=== PATIENT | female | born 1950 | race Caucasian/White ===

== ENCOUNTER → 2018-05-21 08:36 | Outpatient (CLI) | payer MEDICARE, SELFPAY ==
[2018-05-21 10:39] LABS: Anion Gap 9 (5-15); BUN 11 mg/dL (7-18); BUN/Creat Ratio 17.9 RATIO (10-20); Calcium,Total 9.3 mg/dL (8.5-10.1); Chloride 98 mmol/L (98-107); Cholesterol 204 mg/dL (200); Creatinine, Serum 0.62 mg/dL (0.55-1.02); EST Glomerular Filtration Rate 103 mL/min (>60); Est Glom Filt Rate - Afr Amer 124 mL/min (>60); Glucose 80 mg/dL (74-106); High Density Lipoprotein 103 mg/dL; Potassium 3.8 mmol/L (3.5-5.1); Sodium Level 135 mmol/L (136-145); Triglycerides 73 mg/dL; Very Low Density Lipoprotein 15 mg/dL (5-40)
[2018-05-21 10:46] LABS: Vitamin D,25 Hydroxy 22.6 ng/mL (29.95-100.01)
--- OUTSIDE RECORDS SUMMARY | 2018-07-16 13:56 | XMS RPT_ITS ---
:1950 Author Organization OHIP Care Team Providers Name Role Phone AIRAM DOWELL Referring Unavailable AIRAM DOWELL Attending Unavailable Maria R Brown Attending Unavailable Sid Flower Referring Unavailable Sid Flower Primary Care Unavailable Maria R Brown Attending Unavailable Sid Flower Referring Unavailable Gabriele Orona Attending Unavailable Flower, Sid Referring Unavailable Flower, Sid Primary Care Unavailable Waymarialuisa, Gabriele Attending Unavailable Flower, Sid Referring Unavailable Wayt, Gabriele Attending Unavailable Flower, Sid Referring Unavailable Waymarialuisa, Gabriele Attending Unavailable Flower, Sid Referring Unavailable Wayt, Gabriele Attending Unavailable Flower, Sid Referring Unavailable Flower, Sid Attending Unavailable Flower, Sid Referring Unavailable Flower, Sid Primary Care Unavailable PROBLEMS PROBLEMS DATE TYPE CONDITION / CODE ATTENDING STATUS SOURCE 04/24/2018 Unknown M17.11 - Gabriele Orona Active [place] Unilateral [facility] osteoarthritis, Repository right knee / M17.11(ICD-10) 10/30/2017 Active Encounter for NA Active [facility] screening [facility] mammogram for Repository malignant neoplasm of breast / Z12.31(ICD-10) PROCEDURES PROCEDURES No Procedure Records FoundRESULTS RESULTS BASIC METABOLIC Collected: 05/21/2018 Status: F Source: [place] PROFILE (BMP) 8:41 AM [facility] REPOSITORY Order Comment: Order Date: 10/14/17 Order Info: 0667-1 - BMP Order Info: 71142-6 - LIPID TYPE CODE TESTS RESULT OUT OF RANGE REFERENCE UNITS LAB L501.0100 74-106 mg/dL Normal GLU 80 Result Comment: Please note revised GLUCOSE reference range effective 2017. LAB L501.1000 7-18 mg/dL Normal BUN 11 LAB L501.1100 0.55-1.02 mg/dL Normal CREAT,SERUM 0.62 Result Comment: The validity of the calculated GFR AND GFRAA in patients over 70 years has not been determined. Clinical correlation is essential. LAB L501.1110 >60 mL/min Normal EST GFR 103 Result Comment: Non- GFR Calc LAB L501.1115 >60 mL/min Normal EST GFR - AA 124 Result Comment: GFR Calc LAB L501.1300 10-20 RATIO Normal BUN/CRE 17.9 LAB L501.2200 8.5-10.1 mg/dL CA Normal 9.3 LAB L501.5300 136-145 mmol/L Low NA 135 LAB L501.5600 3.5-5.1 mmol/L K Normal 3.8 LAB L501.5900 98-107 mmol/L CL Normal 98 LAB L501.6100 21.0-32.0 mmol/L Normal CO2 28.0 LAB L501.6200 5-15 Normal GAP 9 Performed By: #### L500.2500, L500.4100, L506.1000 #### [facility] [address] [place], [address] LIPID PROFILE Collected: 05/21/2018 Status: F Source: [place]Y 8:41 AM [facility] REPOSITORY Order Comment: Order Date: 10/14/17 Order Info: 0667-1 - BMP Order Info: 79345-2 - LIPID TYPE CODE TESTS RESULT OUT OF RANGE REFERENCE UNITS LAB L501.4900 200 mg/dL High CHOL 204 Result Comment: <200 mg/dL Desirable 200-240 mg/dL Borderline >240 mg/dL High Risk LAB L501.5000 mg/dL Normal TRIG 73 Result Comment: The drugs N-Acetylcysteine and Metamizole may falsely depress this assay. Serum Triglycerides Reference Interval Normal <150 mg/dL Borderline high 150 - 199 mg/dL High 200 - 499 mg/dL Very High > or = 500 mg/dL LAB L501.6400 mg/dL Normal HDL 103 Result Comment: The drugs N-Acetylcysteine and Metamizole may falsely depress this assay. Reference Range HDL <40 mg/dL Low HDL Cholesterol HDL >or= 60 mg/dL High HDL Cholesterol LAB L501.6500 0-130 mg/dL Normal LDL 86 LAB L501.6600 5-40 mg/dL Normal VLDL 15 Performed By: #### L500.2500, L500.4100, L506.1000 #### [facility] [address] [place], [place], [address] VITAMIN D,25 HYDROXY Collected: 05/21/2018 Status: F Source: [place] 8:41 AM [facility] REPOSITORY Order Comment: Order Date: 10/14/17 Order Info: [id number] - VITD25 TYPE CODE TESTS RESULT OUT OF REFERENCE UNITS RANGE LAB L506.1000 29.95-100.01 ng/mL Low Vitamin D 22.6 25-OH Result Comment: Vitamin D 25(OH) Status Range Deficiency <20 ng/mL (50nmol/L) Insuffciency 20 - 30 ng/mL (50 - 75 nmol/L) Sufficiency 30 - 100 ng/mL (75 - 250 nmol/L) Toxicity >100 ng/mL (>250 nmol/L) Performed By: #### L500.2500, L500.4100, L506.1000 #### [facility] [address] [place], [address] ORTHOPEDIC VISIT Observed: 04/24/2018 Status: F Source: [place] REPORT 11:30 AM [facility] REPOSITORY [facility] [address] [place] [address] OFFICE VISIT Date of Service: 04/24/18 MR#: [id number] Acct: [id number] Name: DANIELLE GAO Rep #: [id number] : 1950 Provider: GENTRY Orona Age/Sex: 68/F Location: [facility] Status: Signed Intake Intake Visit Reasons: RIGHT KNEE Is patient in pain?: No Allergies No Known Allergies Allergy (Verified 04/24/18 08:17) Medications aspirin 81 mg tablet,delayed release 81 mg PO QDAY 12/05/17 [History Confirmed 12/05/17] atorvastatin 10 mg tablet 10 mg PO QDAY 12/05/17 [History Confirmed 12/05/17] calcium carbonate-vitamin D3 600 mg (1,500 mg)-500 unit capsule cap PO 12/05/17 [History Confirmed 12/05/17] hydrochlorothiazide 25 mg tablet 25 mg PO QDAY 12/05/17 [History Confirmed 12/05/17] multivitamin tablet 1 tab PO QDAY 12/05/17 [History Confirmed 12/05/17] PFSH Medical History H/O: hysterectomy (Acute) Surgical History h/o bunionectomy (Acute) HPI RIGHT KNEE: Details: DANIELLE GAO is a 68 year old F here today for her 3rd orthovisc injection into her right knee. She states that the injections have been helpful. She feels less pain and grinding. Denies numbness, tingling or other associated symptoms. She had no adverse reaction to her injection. ROS Const Reports system reviewed and no additional complaints, except as docu Eyes Reports system reviewed and no additional complaints, except as docu ENT Reports system reviewed and no additional complaints, except as docu Card Reports system reviewed and no additional complaints, except as docu Resp Reports system reviewed and no additional complaints, except as docu GI Reports system reviewed and no additional complaints, except as docu Reports system reviewed and no additional complaints, except as docu Skin/Breast Reports system reviewed and no additional complaints, except as docu Neuro Yes system reviewed and no additional complaints, except as docu Psych Reports system reviewed and no additional complaints, except as docu Endo Reports system reviewed and no additional complaints, except as docu Ortho Exam Right Knee Contralateral Normal: Yes Swelling: No Homans Sign: No Knee ROM: Yes ROM-Extension -20 to 0, Yes ROM-Flexion 0-140 Examination: Yes Med jt line tenderness, No Pain with flexion, No Pain with extention Quad Atrophy: No Office Meds ORTHOVISC Performing Provider: GENTRY Swanson Administered by: GENTRY Swanson on 04/24/18 08:19 Dose Route Admin Location Lot Number Expiration Date [employer] 30 mg Intra-Articular right knee Assessment AND Plan Plan Patient is here to receive her third and final Orthovisc injection into the right knee. This point patient states that she did not feel much events after the first shot but after the second injection has noticed improvement. She has no new complaints or concerns otherwise. Risks and benefits were again discussed and patient is aware of. Consent was signed and injection was given without complications or problems. Patient to follow-up with any concerns or complaints in the meantime. Orders Orders: Medications Discontinued: ORTHOVISC (sodium hyaluronate (viscosup)) 30 mg (2 mL) Intra- Articular ONCE 1 mL 0RFM17.11 Discontinued Reason: Office Medication NS has been Documented as given Coding Level of Care Code Off vis,est,level 2 04/24/18 1130 <Electronically signed by Gabriele RINALDI> Date Gabriele RINALDI Cosigner Signature: Date (if applicable) CC: ORTHOPEDIC VISIT Observed: 04/17/2018 Status: F Source: [place] REPORT 10:11 AM [facility] REPOSITORY [facility] [address] [place] [address] OFFICE VISIT Date of Service: 04/17/18 MR#: [id number] Acct: [id number] Name: DANIELLE GAO Rep #: [id number] : 1950 Provider: GENTRY Orona Age/Sex: 68/F Location: [facility] Status: Signed Intake Intake Visit Reasons: RIGHT KNEE Is patient in pain?: Yes Allergies No Known Allergies Allergy (Verified 04/17/18 08:25) Medications aspirin 81 mg tablet,delayed release 81 mg PO QDAY 12/05/17 [History Confirmed 12/05/17] atorvastatin 10 mg tablet 10 mg PO QDAY 12/05/17 [History Confirmed 12/05/17] calcium carbonate-vitamin D3 600 mg (1,500 mg)-500 unit capsule cap PO 12/05/17 [History Confirmed 12/05/17] hydrochlorothiazide 25 mg tablet 25 mg PO QDAY 12/05/17 [History Confirmed 12/05/17] multivitamin tablet 1 tab PO QDAY 12/05/17 [History Confirmed 12/05/17] PFSH Medical History H/O: hysterectomy (Acute) Surgical History h/o bunionectomy (Acute) HPI RIGHT KNEE: Details: DANIELLE GAO is a 68 year old F here today for 2nd orthovisc injection into her right knee. She notes that she doesnt notice a difference with her pain yet. Patient continues to have clicking and grinding. She denies any adverse reaction from her last injection. ROS Const Reports system reviewed and no additional complaints, except as docu Eyes Reports system reviewed and no additional complaints, except as docu ENT Reports system reviewed and no additional complaints, except as docu Card Reports system reviewed and no additional complaints, except as docu Resp Reports system reviewed and no additional complaints, except as docu GI Reports system reviewed and no additional complaints, except as docu Reports system reviewed and no additional complaints, except as docu Musc Reports joint pain Skin/Breast Reports system reviewed and no additional complaints, except as docu Neuro Yes system reviewed and no additional complaints, except as docu Psych Reports system reviewed and no additional complaints, except as docu Endo Reports system reviewed and no additional complaints, except as docu Ortho Exam Right Knee Contralateral Normal: Yes Swelling: No Homans Sign: No Knee ROM: Yes ROM-Extension -20 to 0, Yes ROM-Flexion 0-140 Examination: Yes Med jt line tenderness Patella Grind: No Assessment AND Plan Problems 1. Arthritis of right knee M17.11 Plan Patient was here to receive her second gel injection into the right knee. We discussed risks and benefits previously at the same time did discuss this again today. Patient is aware of these risks and consent was signed again. Injection was proceeded without any complications. She is to make an appointment in 1 week for her third injection. She can notify the office of any changes in sooner which include erythema, pain, or swelling. Orders Orders: Medications New: ORTHOVISC (sodium hyaluronate (viscosup)) 30 mg (2 mL) Intra- Articular ONCE 1 mL 0RFM17.11 NS Plan Detail Follow Up 1 Week Coding Level of Care Code Off vis,est,level 2 Diagnoses Arthritis of right knee M17.11 04/17/18 1011 <Electronically signed by Gabriele RINALDI> Date Gabriele RINALDI Cosigner Signature: Date (if applicable) CC: ORTHOPEDIC VISIT Observed: 04/10/2018 Status: F Source: [place] REPORT 9:24 AM [facility] [address] [place] [address] OFFICE VISIT Date of Service: 04/10/18 MR#: [id number] Acct: [id number] Name: DANIELLE GAO Rep #: [id number] : 1950 Provider: GENTRY Orona Age/Sex: 68/F [place] [facility]: Signed Intake Intake Visit Reasons: RIGHT KNEE Is patient in pain?: Yes Pain scale (1-10): 4 Allergies No Known Allergies Allergy (Unverified 12/05/17 11:07) Medications aspirin 81 mg tablet,delayed release 81 mg PO QDAY 12/05/17 [History Confirmed 12/05/17] atorvastatin 10 mg tablet 10 mg PO QDAY 12/05/17 [History Confirmed 12/05/17] calcium carbonate-vitamin D3 600 mg (1,500 mg)-500 unit capsule cap PO 12/05/17 [History Confirmed 12/05/17] hydrochlorothiazide 25 mg tablet 25 mg PO QDAY 12/05/17 [History Confirmed 12/05/17] multivitamin tablet 1 tab PO QDAY 12/05/17 [History Confirmed 12/05/17] PFSH Medical History H/O: hysterectomy (Acute) Surgical History h/o bunionectomy (Acute) HPI RIGHT KNEE: Details: DANIELLE GAO is a 68 year old F here today for right knee pain and 1st orthovisc injection of this series. She states that the steroid injection last month was incredibly helpful and allowed her to do all the walking on her travels oversees with only mild pain. Her pain today is lateral knee that increases with flexion. Denies numbness, tingling or other associated symptoms. She has mild swelling today. Denies any calf pain. ROS Musc Reports joint pain, Reports joint swelling, Reports stiffness, Reports as per HPI Ortho Exam Right Knee Contralateral Normal: Yes Swelling: No Homans Sign: No Knee ROM: Yes ROM-Extension -20 to 0, Yes ROM-Flexion 0-140 Examination: Yes Lat jt line tenderness, Yes Pain with flexion, No Pain with extention, No Crepitus, No Med jt line tenderness Quad Atrophy: No Office Meds ORTHOVISC Performing Provider: GENTRY Swanson Administered by: GENTRY Swanson on 04/10/18 08:35 Dose Route Admin Location Lot Number Expiration Date [facility] Publications Designer 30 mg Intra-Articular right knee Assessment AND Plan Problems 1. Arthritis of right knee M17.11 Plan Patient is here for her first Visco injection. She has had multiple steroid injections to the right knee which were helpful. He continued to have lateral joint line pains and pains with flexion. She has had previous x-rays showing arthritis within the knee. We again discussed risks and benefits of the injection which she is aware of already. She would like to proceed at this time with injection of the right knee. Consent was signed injection was given without any complications. Patient already has her next appointment scheduled for next Saturday to have a second injection Orders Orders: Medications Discontinued: ORTHOVISC (sodium hyaluronate (viscosup)) 30 mg (2 mL) Intra- Articular ONCE 1 mL 0RFM17.11 Discontinued Reason: Office Medication NS has been Documented as given Plan Detail Follow Up 1 Week Coding Level of Care Code Off vis,est,level 2 Diagnoses Arthritis of right knee M17.11 04/10/18 0924 <Electronically signed by Gabriele RINALDI> Date Gabriele RINALDI Cosigner Signature: Date (if applicable) CC: ORTHOPEDIC VISIT Observed: 03/17/2018 Status: F Source: [place] REPORT 8:21 AM [facility] [address] [place] [address] OFFICE VISIT Date of Service: 03/17/18 MR#: [id number] Acct: [id number] Name: DANIELLE GAO Rep #: [id number] : 1950 Provider: GENTRY Orona Age/Sex: 68/F [place] [facility] [place]: Signed Intake Intake Visit Reasons: RIGHT KNEE Is patient in pain?: Yes Pain scale (1-10): 7 Allergies No Known Allergies Allergy (Unverified 12/05/17 11:07) Medications aspirin 81 mg tablet,delayed release 81 mg PO QDAY 12/05/17 [History Confirmed 12/05/17] atorvastatin 10 mg tablet 10 mg PO QDAY 12/05/17 [History Confirmed 12/05/17] calcium carbonate-vitamin D3 600 mg (1,500 mg)-500 unit capsule cap PO 12/05/17 [History Confirmed 12/05/17] hydrochlorothiazide 25 mg tablet 25 mg PO QDAY 12/05/17 [History Confirmed 12/05/17] multivitamin tablet 1 tab PO QDAY 12/05/17 [History Confirmed 12/05/17] [facility] Surgical History H/O: hysterectomy (Acute) h/o bunionectomy (Acute) HPI RIGHT KNEE: Details: DANIELLE GAO is a 68 year old F here today for right knee pain, she has travel coming up and will be unable to get her series of 3 visco injections in a row and would like to discuss postponing those until she returns. Her knee pain is constant, worse at night and makes her aware of her movements at all times. Denies numbness, tingling or other associated symptoms. She is using tylenol for pain. ROS Musc Reports joint pain, Reports abnormal walking, Reports as per HPI Neuro Yes abnormal walking Ortho Exam Right Knee Contralateral Normal: Yes Swelling: No Homans Sign: No Knee ROM: Yes ROM-Extension -20 to 0, Yes ROM-Flexion 0-140 Examination: Yes Med jt line tenderness, Yes Lat jt line tenderness, No Pain with flexion, No Pain with extention Assessment AND Plan Problems 1. Arthritis of right knee M17.11 Plan Patient will schedule to have her Gel injections as her dates got mixed up due to having to accompany her for work for 2 weeks. We discussed the injection and what to expect although she has had these before (last one November 29). She si to notify of any concerns or complaints. Coding Level of Care Code Off vis,est,level 3 Diagnoses Arthritis of right knee M17.11 03/17/18 0821 <Electronically signed by Gabriele RINALDI> Date Gabriele RINALDI Cosigner Signature: Date (if applicable) CC: ORTHOPEDIC VISIT Observed: 12/10/2017 Status: F Source: [place] REPORT 10:34 AM [facility] REPOSITORY [facility] [address] [place] [address] OFFICE VISIT Date of Service: 12/05/17 MR#: [id number] Acct: [id number] Name: DANIELLE GAO Rep #: [id number] : 1950 Provider: Maria R Brown DO Age/Sex: 67/F Location: [facility] Status: Signed Intake Intake Visit Reasons: RIGHT KNEE Is patient in pain?: Yes Allergies No Known Allergies Allergy (Unverified 12/05/17 11:07) Medications aspirin 81 mg tablet,delayed release 81 mg PO QDAY 12/05/17 [History Confirmed 12/05/17] atorvastatin 10 mg tablet 10 mg PO QDAY 12/05/17 [History Confirmed 12/05/17] calcium carbonate-vitamin D3 600 mg (1,500 mg)-500 unit capsule cap PO 12/05/17 [History Confirmed 12/05/17] hydrochlorothiazide 25 mg tablet 25 mg PO QDAY 12/05/17 [History Confirmed 12/05/17] multivitamin tablet 1 tab PO QDAY 12/05/17 [History Confirmed 12/05/17] PFSH Surgical History H/O: hysterectomy (Acute) h/o bunionectomy (Acute) HPI RIGHT KNEE: Details: DANIELLE GAO is a 67 year old F here today for right knee pain. Patient notes that her knee pain has continued to progress. Her pain is over her lateral knee. She has popping, clicking and swelling. Her pain increases with ambulating down stairs. She denies any recent steroid injections. Her last injections of Orthovisc were helpful until recently. ROS Const Reports system reviewed and no additional complaints, except as docu Eyes Reports system reviewed and no additional complaints, except as docu ENT Reports system reviewed and no additional complaints, except as docu Card Reports system reviewed and no additional complaints, except as docu Resp Reports system reviewed and no additional complaints, except as docu GI Reports system reviewed and no additional complaints, except as docu Reports system reviewed and no additional complaints, except as docu Musc Reports as per HPI, Reports joint pain, Reports joint swelling, Reports stiffness Skin/Breast Reports system reviewed and no additional complaints, except as docu Neuro Yes system reviewed and no additional complaints, except as docu Psych Reports system reviewed and no additional complaints, except as docu Endo Reports system reviewed and no additional complaints, except as docu Ortho Exam Right Knee Skin/Wound: Yes CDI Contralateral Normal: Yes Swelling: No Homans Sign: No 1+: Effusion Knee ROM: Yes ROM-Extension -20 to 0, Yes ROM-Flexion 0-140 Examination: Yes Med jt line tenderness, Yes Pain with flexion, Yes Crepitus Quad Atrophy: No Office Procedures Ortho Injections Injections Yes Knee Right Details: Obtained consent for injection. Under sterile conditions, aspirated 6cc and injected the patients right knee with a 10cc cocktail of 8cc bupivacaine and 2cc kenalog. The patient tolerated the injection well without any noted complication. Patient should call our office if redness develops, pain worsens or if they have any concerns. Office Meds Kenalog Performing Provider: Maria R Brown DO Administered by: Maria R Brown DO on 12/05/17 09:54 Dose Route Admin Location Lot Number Expiration DateNDC Publications Designer 2 mg Intra-Articularright knee [id number] 10/22/18 [id number] [facility] Assessment AND Plan 1. Primary osteoarthritis of right knee M17.11 Plan discussed treatment options today. as having increased swelling and synovitis today, patient elected to proceed with injection today to provide immediate relief. discussed treatment options of bracing, exercising, icing after injection as well. patient in agreement of plan and elected to proceed with injection today and we will put in for orthovisc injection if patient elects to proceed. Conservative treatment continues to be helpful, return in 4 months if needed. Follow up in 3-4 months or sooner if pain, swelling, numbness or associated symptoms, or concerns develop. All questions answered. Patient in agreement of plan. Orders Orders: Medications Discontinued: Kenalog (triamcinolone acetonide) Disc2 mg (0.2 mL) Intra- Articular ONCE NS Brayden Jack ontinued Reason: Office Medication has b een Documented as given Coding Level of Care Code Off vis,est,level 3 Diagnoses Primary osteoarthritis of right knee M17.11 Osteoarthritis type: primary Additional Codes manager administration.knee ([id number]) 12/10/17 1034 <Electronically signed by Maria R Brown DO> Date Maria R Brown DO Cosigner Signature: Date (if applicable) CC: CNCO Observed: 10/30/2017 Status: COMPLETED Source: [place] 3:17 PM [facility] REPOSITORY HNO ID: [id number] Author: Coordinator, Mammography Service: (none) Author Type: Physician Type: Letter Filed: 10/31/2017 11:32 PM Note Text: October 30, 2017 PID: [id number] Danielle Gao [address] [place] [address] Dear Ms. Gao, We are pleased to inform you that the results of your recent breast imaging exam on 10/30/2017 are normal. Early detection of cancer is very important. We also understand recommendations regarding breast cancer screening are controversial. Please discuss with your primary care provider which strategy is best for you and whether a mammogram is right for you. Your imaging studies and report will be kept on file at [facility] as part of your permanent medical record and are available for your continuing care. Thank you for allowing us to help in meeting your health care needs. Sincerely, Dr. Hughes Interpreting Radiologist [facility] (Normal over 40) PROGRESS Observed: 10/30/2017 Status: COMPLETED Source: [place] 9:59 AM [facility] REPOSITORY HNO ID: [id number] Author: Airam Dowell Service: (none) Author Type: Physician Type: Progress Notes Filed: 10/30/2017 10:46 AM Note Text: Vice President Pharmacy offered: Patient declines. Danielle Gao is a 67 year old who presents for her annual gynecologic exam without complaints. Leaving for [employer] next week. Retired from [employer]. Has 6 grandchildren- one starting med school this fall at [employer]. Postmenopausal: yes. Hysterectomy at 38. One ovary removed at that time. HRT use: No. History of abnormal pap: No Last mammogram: 2016 normal. Today's results pending. History of abnormal mammogram: Yes - lumpectomy in 1988; follow up more recently normal Sexually active: Yes History of STDS: None Patient concerns for STD exposure: No. Last sexual contact: 1 month Time with current partner: 49 years Number of lifetime partners: 1 Pain with intercourse: Yes Postcoital bleeding: No Hot flashes: No Night sweats: No Vaginal dryness: Yes Mood swings: No Insomnia: No Exercise: 7 times a week for 4-5 miles. Type: walking Diet: well balanced Obstetric History T3 L3 SAB0 TAB0 Ectopic0 Multiple0 Live Births0 PAST MEDICAL HISTORY Diagnosis Date - Edema - Hemorrhage of gastrointestinal tract, unspecified - Hemorrhage of rectum and anus - Internal hemorrhoids without mention of complication - Other and unspecified hyperlipidemia - Seasonal allergies PAST SURGICAL HISTORY Procedure Laterality Date - COLONOSCOP W/ OR W/O [facility] SPEC 05/03/06 - COLONOSCOP W/ OR W/O [facility] SPEC N/A 09/27/2016 - COLONOSCOP W/ OR W/O [facility] SPEC 04/08/2017 repeat 5 years - HAMMERTOE REVISION, ONE TOE 05/07/2012 2 toes, 2nd and third - LUMPECTOMY/RADIOTHERAPY DIAG MAMM/A10 1988 left breast - PAST SURGICAL HISTORY OF catarct surgery both eyes - REMOVE TONSILS/ADENOIDS,<12 Y/O - TOTAL ABDOM HYSTERECTOMY September 1987 FAMILY HISTORY Problem Relation Age of Onset - Cancer Mother Pancreatic - Heart Father Heart attack/hypertension SOCIAL HISTORY Social History Substance Use Topics - Smoking status: Never Smoker - Smokeless tobacco: Never Used - Alcohol use 1.5 oz/week 1 Glasses of Wine (5oz) per week Comment: occasionally REVIEW OF SYSTEMS Abdomen: No abdominal pain, nausea, vomiting, diarrhea, or constipation. No bloating, early satiety, indigestion, or increased flatulence. Bladder: No dysuria, gross hematuria, urinary frequency, urinary urgency, or incontinence Breast: No breast lumps, nipple d/c, overlying skin changes, redness or skin retraction Allergies and current medication updated:Yes EXAM: There were no vitals taken for this visit. GENERAL: pleasant, female in no apparent distress HEENT: Normocephalic, atraumatic, mucus membranes moist and no lesions NECK: Supple, full range of motion, no adenopathy and thyroid normal DERMATOLOGY: Normal, without lesions, non-icteric and non-hirsute BREAST: soft, non-tender, symmetric, no dominant mass, normal nipple-areolar complex, no lymphadenopathy and no nipple discharge ABDOMEN: soft, non-tender and no masses PELVIC: external genitalia normal, normal Bartholin's glands, urethra, Rancho Cordova's glands, no vulvar lesions, good vaginal support, physiologic discharge present, normal appearing perineal body and perianal region, cervix surgically absent BIMANUAL: no adnexal masses, non-tender and uterus surgically absent RECTOVAGINAL: deferred. NEURO: alert and oriented x3,exam grossly non-focal EXTREMITIES: normal ASSESSMENT/PLAN: 1) Health maintenance: Pap/HPV screening no longer needed Mammogram ordered Mammogram up to date Nutrition, exercise and routine health maintenance exams reviewed. Calcium/Vitamin D supplementation information provided. Colon cancer screening: up to date with screening BMD: ordered 2) Follow up one year or sooner as needed Beni QuispentoshAiram KRISTA SCREENING Observed: 10/30/2017 Status: F Source: [place] 9:53 AM [facility] REPOSITORY * * *Final Report* * * DATE OF EXAM: Oct 30 2017 9:53AM [facility] - [facility] SCREENING / PROCEDURE REASON: Encounter for screening mammogram for malignant neoplasm of breast * * * * Physician Interpretation * * * * RESULT: #[id number] - KRISTA SCREENING BILATERAL DIGITAL SCREENING MAMMOGRAM WITH CAD: 10/30/2017 HISTORY: Encounter For Screening Mammogram For Malignant Neoplasm Of Breast /patient reports no breast symptoms /priors available for comparison. RESULT: TECHNIQUE: The study was acquired using full field digital technology and interpreted from soft copy. Current study was also evaluated with a Computer Aided Detection (CAD). Comparison is made to exams dated: 09/10/2016 mammogram, 09/05/2015 mammogram - [facility], 07/06/[address] - [facility], and 07/05/2014 mammogram - [facility]. There are scattered fibroglandular elements in both breasts. There are benign calcifications in both breasts. No significant masses, calcifications, or other findings are seen in either breast. There has been no significant interval change. IMPRESSION: BENIGN FINDING There is no mammographic evidence of malignancy.A 1 year screening mammogram is recommended. Yolanda Hughes M.D., mc/rupa:10/30/2017 15:17:32 Gallery Director: Evy LARSON)(Rebekah), [facility] letter sent: Normal over 40 Mammogram BI-RADS: 2 Benign finding Gas Systems Worker: Rupa Transcribe Date/Time: Oct 30 2017 9:42A Dictated by: YOLANDA SHELTON MD This examination was interpreted and the report reviewed and electronically signed by: YOLANDA SHELTON MD on Oct 30 2017 3:17PM EST [id number] Observed: 10/30/2017 Status: COMPLETED Source: [place] 9:50 AM [facility] [place] REPOSITORY Office Visit (WOOB) DANIELLE GAO ([id number]) 1950 F Date Time Provider Department 10/30/17 9:50 AM AIRAM DOWELL WOOB During your visit today, we recorded the following information about you: Blood pressure Weight Height 138/74 72.1 kg 1.64 m Airam Dowell 10/30/2017 10:46 AM Signed Vice President Pharmacy offered: Patient declines. Danielle Gao is a 67 year old who presents for her annual gynecologic exam without complaints. Leaving for [employer] next week. Retired from [employer]. Has 6 grandchildren- one starting [employer] school this fall at [employer]. Postmenopausal: yes. Hysterectomy at 38. One ovary removed at that time. HRT use: No. History of abnormal pap: No Last mammogram: 2016 normal. Today's results pending. History of abnormal mammogram: Yes - lumpectomy in 1988; follow up more recently normal Sexually active: Yes History of STDS: None Patient concerns for STD exposure: No. Last sexual contact: 1 month Time with current partner: 49 years Number of lifetime partners: 1 Pain with intercourse: Yes Postcoital bleeding: No Hot flashes: No Night sweats: No Vaginal dryness: Yes Mood swings: No Insomnia: No Exercise: 7 times a week for 4-5 miles. Type: walking Diet: well balanced Obstetric History T3 L3 SAB0 TAB0 Ectopic0 Multiple0 Live Births0 PAST MEDICAL HISTORY Diagnosis Date - Edema - Hemorrhage of gastrointestinal tract, unspecified - Hemorrhage of rectum and anus - Internal hemorrhoids without mention of complication - Other and unspecified hyperlipidemia - Seasonal allergies PAST SURGICAL HISTORY Procedure Laterality Date - COLONOSCOP W/ OR W/O [facility] SPEC 05/03/06 - COLONOSCOP W/ OR W/O [facility] SPEC N/A 09/27/2016 - COLONOSCOP W/ OR W/O [facility] SPEC 04/08/2017 repeat 5 years - [place] REVISION, ONE TOE 05/07/2012 2 toes, 2nd and third - LUMPECTOMY/RADIOTHERAPY DIAG MAMM/A10 1988 left breast - PAST SURGICAL HISTORY OF catarct surgery both eyes - REMOVE TONSILS/ADENOIDS,<12 Y/O - TOTAL ABDOM HYSTERECTOMY September 1987 FAMILY HISTORY Problem Relation Age of Onset - Cancer Mother Pancreatic - Heart Father Heart attack/hypertension SOCIAL HISTORY Social History Substance Use Topics - Smoking status: Never Smoker - Smokeless tobacco: Never Used - Alcohol use 1.5 oz/week 1 Glasses of Wine (5oz) per week Comment: occasionally REVIEW OF SYSTEMS Abdomen: No abdominal pain, nausea, vomiting, diarrhea, or constipation. No bloating, early satiety, indigestion, or increased flatulence. Bladder: No dysuria, gross hematuria, urinary frequency, urinary urgency, or incontinence Breast: No breast lumps, nipple d/c, overlying skin changes, redness or skin retraction Allergies and current medication updated:Yes EXAM: There were no vitals taken for this visit. GENERAL: pleasant, female in no apparent distress HEENT: Normocephalic, atraumatic, mucus membranes moist and no lesions NECK: Supple, full range of motion, no adenopathy and thyroid normal DERMATOLOGY: Normal, without lesions, non-icteric and non-hirsute BREAST: soft, non-tender, symmetric, no dominant mass, normal nipple-areolar complex, no lymphadenopathy and no nipple discharge ABDOMEN: soft, non-tender and no masses PELVIC: external genitalia normal, normal Bartholin's glands, urethra, [place] Cord[place]'s glands, no vulvar lesions, good vaginal support, physiologic discharge present, normal appearing perineal body and perianal region, cervix surgically absent BIMANUAL: no adnexal masses, non-tender and uterus surgically absent RECTOVAGINAL: deferred. NEURO: alert and oriented x3,exam grossly non-focal EXTREMITIES: normal ASSESSMENT/PLAN: 1) Health maintenance: Pap/HPV screening no longer needed Mammogram ordered Mammogram up to date Nutrition, exercise and routine health maintenance exams reviewed. Calcium/Vitamin D supplementation information provided. Colon cancer screening: up to date with screening BMD: ordered 2) Follow up one year or sooner as needed Airam Dowell Referring Provider: SELF [200] Allergies As of Date: 10/30/2017 Noted Allergy Reaction CODEINE 10/09/2005 5 - Intolerance Date Reviewed: 10/30/2017 Reviewed by: Cyndie Brownlee Ma - Fully Assessed Reason for Visit: Yearly Exam [187] Primary Visit Diagnosis:Encounter for gynecological examination (general) (routine) without abnormal findings [Z01.419] Other Visit Diagnoses:Visit for screening mammogram [Z12.31] Encounter for screening for osteoporosis [Z13.820] Order(s):KRISTA SCREENING [[id number]] Order #: [id number] FUTURE estradiol (ESTRACE) 0.01 % (0.1 mg/gram) vaginal creamUse one gram nightly x 2 weeks then 1/2 gram 1-3 times weekly for maintenanceDisp: 1 TubeRfl: 0 DXA-AXIAL SKELETON [[id number]] Order #: [id number] FUTURE Prescriptions as of 10/30/2017 Sig: ESTRADIOL 0.01% (0.1 MG/GRAM)* Use one gram nightly x 2 week* * LORATADINE 10 MG TABLET Take one (1) tablet daily as * * LIPITOR 10 MG TABLET Take one(1) tablet daily. * MULTIVITAMIN TABLET Take one(1) tablet daily. * CALCIUM + D 600 MG (1,500 MG)* Take one(1) tablet daily. * NATURAL E 400 400 UNIT CAPSULE Take one(1) tablet daily. * MEDICATION, NON-DATABASE potassium 550 mg 1 per day * NIACINAMIDE 100 MG TABLET Take one(1) tablet daily. * ASPIRIN 81 MG TABLET Take one (1) tablet daily . * HYDROCHLOROTHIAZIDE 25 MG TAB* Take one(1) tablet daily. Problem List As Of Date 10/30/2017 Noted Resolved OPEN WOUND SITE NOS-COMPL [T07.XXXA] INVALID FOR* RECTAL AND ANAL HEMORRHAGE [K62.5] SCAR AND FIBROSIS OF SKIN [L90.5] INVALID FOR* OTHER ATOPIC DERMATITIS [L20.89] INVALID FOR* CHR SOLAR SKIN DAMAGE NOS [L57.8] INVALID FOR* DYSCHROMIA OTHER [L81.9] INVALID FOR* BENIGN NICCI SKIN TRUNK [D23.5] INVALID FOR* SEBORRHEIC KERATOSIS NOS [L82.1] INVALID FOR* VIRAL WARTS NOS [B07.9] INVALID FOR* BENIGN NICCI SKIN LEG [D23.70] INVALID FOR* ACTINIC KERATOSIS [L57.0] INVALID FOR* H/O BCC'S///PERS HX SKIN MALIGNANCY NEC [Z85.82*INVALID FOR* SEBORRHEIC KERATOSIS INFLAMED [L82.0] INVALID FOR* NEVI////BENIGN NICCI SKIN FACE NEC [D23.30] INVALID FOR* SKIN HYPERTRO/ATROPH NOS [L91.9, L90.9] INVALID FOR* SUPERFIC INJURY NEC-INFECTION [T14.8XXA, L08.9] INVALID FOR* Prescriptions ordered this encounter Disp Refills Start End ESTRADIOL 0.01% (0.1 MG/GRAM) VAGINA* 1 Tu* 0 10/30/2017 Sig: Use one gram nightly x 2 weeks then 1/2 gram 1-3 times weekly for maintenance Medications Discontinued During This Encounter estradiol (ESTRING) 2 mg vaginal ring 1 Ea* 3 10/13/2015 10/30/2017 Route: VAGINAL Sig: Use 2 mg vaginally every 3 months. INSERT 1 RING DIRECTED Disc: Reason for discontinue is not on file. Disposition: Return in 1 year (on 10/30/2018) for Annual Exam. Follow-up and Disposition History Recorded Encounter Status:Closed by AIRAM LOPEZ MD on 10/30/17 PROGRESS Observed: 10/30/2017 Status: COMPLETED Source: [place] 9:41 AM [facility] REPOSITORY O ID: [id number] Author: Mary England Service: (none) Author Type: (none) Type: Progress Notes Filed: 10/30/2017 9:55 AM Note Text: Radiology Service Progress Note PATIENT NAME: Danielle Goa DATE OF SERVICE: October 30, 2017 TIME: 9:41 AM PATIENT IDENTITY VERIFICATION COMPLETED USING TWO (2) METHODS: Patient confirmed name verbally and Date of . PATIENT GENDER DATA: Female. status: : No status: NO. PATIENT RELEVANT IMPLANT DATA REVIEWED: Not Applicable RADIOLOGY DEPARTMENT: [facility] jorje scr mammogram PERIPHERAL IV DATA: Not applicable SIGNED BY: Mary Oliveira October 30, 2017 9:41 AM ALLERGIES ALLERGIES DATE TYPE / CODE NAME / CODE REACTION SEVERITY SOURCE 04/24/2018 Drug No Known Unknown [place] Allergy/416 Allergies/F001 [facility] 920041(SNOM 426036(RXNORM) Hospital ED CT) Repository 10/09/2005 DRUG CODEINE INTOLERANCE [facility] INGREDI/419 [facility] 741676(SNOM Repository ED CT) ENCOUNTERS ENCOUNTERS ADMIT/DISCHARGE ACCOUNT ADMITTING ENCOUNTER LOCATION SOURCE NUMBER CLASS 05/21/2018 [id number] Ambulatory [place] [facility] Repository 04/24/2018/04/24/20 [id number] Ambulatory BMSBuilding:B [place] [address] Repository 04/17/2018/04/17/20 [id number] Ambulatory BMSBuilding:B [place] [address] [facility] Repository 04/10/2018/04/10/20 [id number] Ambulatory BMSBuilding:B [place] [address] [place] Repository 03/24/2018 [id number] Ambulatory [facility] Repository 03/17/2018/03/17/20 [id number] Ambulatory BMSBuilding:B [place] [address] [place] Repository 03/10/2018 [id number] Ambulatory BMSBuilding:[place] Repository 12/05/2017/12/06/19 [id number] Ambulatory BMSBuilding:B [place] [address] [facility] Repository 10/30/2017/11/05/19 [id number] Ambulatory [address] Repository 10/30/2017/10/31/19 [id number] Ambulatory [address] Repository PAYERS PAYERS ENCOUNTER GUARANTOR PAYER SUBSCRIBER SOURCE 05/21/2018 DANIELLE Welch Primary Insurance:AETNA DANIELLE Winters [id number] S MCRPolicy Number: CHAPMANDOB: [facility]WV[facility] [id number] Date:6203-63-44CL BOX Repository 138[address]Ghh: [phone] [facility] [phone] (YE) [phone]: 05/21/2018 Secondary NOT GIVENUNK [place] Insurance:SELF PAY Community INSURANCEPolicy Number: Hospital Effective Repository Date:2018-05-21 04/24/2018 DANIELLE Welch Primary Insurance:AETNA DANIELLE Winters [id number] S MCRPolicy Number: CHAPMANDOB: Community MIRELA ULLOANDACIAffective [id number] [facility] Date:0937-58-80GI BOX Repository 880[address]Ywq: [phone] [facility] [phone] () [phone]: 04/24/2018 Secondary NOT GIVENUNK [place] Insurance:SELF PAY Community INSURANCEPolicy Number: Hospital Effective Repository Date:2018-04-24 04/17/2018 DANIELLE Welch Primary Insurance:AETNA DANIELLE Winters [id number] S MCRPolicy Number: CHAPMANDOB: Beth ULLOANDACIAffective [id number] [facility] Date:4723-22-77SN BOX Repository 90[address]Oim: [phone] [facility] [phone] () [phone]: 04/17/2018 Secondary NOT GIVENUNK [place] Insurance:SELF PAY Community INSURANCEPolicy Number: Hospital Effective Repository Date:2018-04-17 04/10/2018 DANIELLE Welch Primary Insurance:AETNA DANIELLE Winters [id number] S MCRPolicy Number: CHAPMANDOB: Beth Valenzuelactive [id number] [facility] Date:4455-58-40IG BOX Repository [address]05[address]Ltd: [phone] [place] [phone] () [phone]: 04/10/2018 Secondary NOT GIVENUNK [place] Insurance:SELF PAY Community INSURANCEPolicy Number: Hospital Effective Repository Date:2018-04-10 03/24/2018 DANIELLE Welch Primary Insurance:AETANKUSH Winters [id number] S MCRPolicy Number: CHAPMANDOB: Beth TRACEYffective [id number] [facility] Date:5031-22-45LW BOX Repository 80[address]Say: [phone] [place] [phone] (HP) [phone]: 03/24/2018 Secondary NOT GIVENUNK [place] Insurance:SELF PAY Community INSURANCEPolicy Number: Hospital Effective Repository Date:2018-02-28 03/17/2018 DANIELLE Rebekah Primary Insurance:AETNA DANIELLE Winters [id number] S MCRPolicy Number: CHAPMANDOB: Community MIRELA SILVABPNWVLEffective [id number] [facility] Date:1686-34-89SD BOX Repository 230[address]Opu: [phone] [place] [phone] (HP) [phone]: 03/17/2018 Secondary NOT GIVENUNK [place] Insurance:SELF PAY Community INSURANCEPolicy Number: Hospital Effective Repository Date:2018-03-17 03/10/2018 DANIELLE Rebekah Primary Insurance:AETNA DANIELLE Winters [id number] S MCRPolicy Number: CHAPMANDOB: Community MIRELA SILVABPNTAWANDALEffective [id number] [facility] Date:4566-65-55NW BOX Repository 484[address]Lvb: [phone] [place] [phone] (HP) [phone]: 03/10/2018 Secondary NOT GIVENUNK [place] Insurance:SELF PAY Community INSURANCEPolicy Number: Hospital Effective Repository Date:2018-02-28 12/05/2017 DANIELLE Rebekah Primary Insurance:AETNA DANIELLE [id number] S MCRPolicy Number: CHAPMANDOB: Community MIRELA TRACEYffective [id number] [facility] Date:4555-27-57GT BOX Repository 435[address]Nfy: [phone] [place] [phone] (HP) [phone]: 12/05/2017 Secondary NOT GIVENUNK [place] Insurance:SELF PAY Community INSURANCEPolicy Number: Hospital Effective Repository Date:2017-12-05
== END ==
PROVIDERS: Family Provider Family Medicine; PCP Family Medicine; Referring Provider Family Medicine; Visit Provider Family Medicine
DX: R60.0 Localized edema (principal); E78.00 Pure hypercholesterolemia, unspecified; Z13.228 Encounter for screening for other metabolic disorders
CPT/HCPCS: 36415; 80048; 80061; 82306

== ENCOUNTER → 2018-10-03 08:37 | Outpatient (CLI) | payer MEDICARE, SELFPAY ==
--- NOTE | 2018-10-03 08:40 | RAD_ITS ---
STUDY: X-RAY - PELVIS AND LEFT HIP REASON FOR EXAM: Hip pain. TECHNIQUE: 2 views of the pelvis and hip. COMPARISON: None. FINDINGS: There are soft tissue calcifications inferior to the ischial tuberosities bilaterally. There is mild vascular calcification. There are pelvic phleboliths. Normal bilateral iliac wings, sacroiliac joints and visualized sacrum. Normal bilateral superior and inferior pubic rami. Normal pubic symphysis. Normal bilateral ischial tuberosities. Normal visualized femoral head. Normal acetabulum. Normal hip joint. RAD/HIP, UNI W/ Pelvis 2-3 Views IMPRESSION: Soft tissue calcifications inferior to the ischial tuberosities bilaterally. Otherwise, unremarkable x-ray examination of the pelvis and left hip. Electronically Signed: Fadi Serrano MD at 15:39 EDT Tel , Service support ,
--- NOTE | 2018-10-03 08:40 | RAD_ITS ---
STUDY: X-RAY - LUMBOSACRAL SPINE REASON FOR EXAM: Female, 68 years old. Low back pain. TECHNIQUE: 6 view(s) of the lumbosacral spine including lateral flexion and extension views were obtained. COMPARISON: None FINDINGS: Normal lumbar lordosis. There is no substantial scoliosis. There is normal alignment of the vertebrae. Normal vertebral bodies and endplates. There is minimal intervertebral disc space narrowing at L4-5 with no significant osteophyte formation. There is minimal diffuse facet sclerosis. Normal bilateral sacral ala, sacroiliac joints, and visualized sacrum. There is vascular calcification. RAD/L/S Spine Min 4 Views IMPRESSION: Minimal lumbar spondylosis as described. Electronically Signed: Nito Ulloa MD at 13:23 EDT , Service support ,
== END ==
PROVIDERS: Family Provider Family Medicine; PCP Family Medicine; Referring Provider Orthopaedic Surgery; Visit Provider Orthopaedic Surgery
DX: R52 Pain, unspecified (principal)
CPT/HCPCS: 72110; 73502

== ENCOUNTER 2018-11-26 10:00 | Outpatient (RCR) | payer MEDICARE, SELFPAY ==
--- NOTE | 2018-11-04 08:51 | HP.PTEVAL ---
Patient's Visit Information ANGELITO BECERRA is a 68 year old F referred to Physical Therapy by Maria R Brown DO with a diagnosis of L greater trochanteric bursitis. Date of Evaluation: 11/04/18 Physical Therapist: KATIA Valenzuela - Visit Plan Frequency: 2x /Week Duration: 6 Weeks Plan: 2X/ week for 3-6 weeks for L IT band stretches, TFL stretches, piriformis stretches, WITH FOAM ROLLING, US to the L hip and when able being L hip strengthening with HEP. Pt was already given piriformis stretches and IT band stretches for HEP. - Subjective Findings: Pt reports that she is not having a lot of trouble now. She started having pain sitting in May and she could not lay on her L hip in bed and going up the steps she would have some dificulty and pain. It continued. She went to Dr Neff at the end of August and gave her 3 injections and they have helped a lot. She also has some arthritis in the hip. It occ bothers her when she does things. She reports that she has no back pain. She has no N&T. She can lay on her L side now. She walks for exercise and gets 10,000 steps in a day... at least 5 days a week. - Pain L hip pain Pain Intensity (Out of 10): 2 - Objective Gait: walks with more stance time on the. LE MMT: B hip flex 4-/5, B knee ext 4-/5, B knee flex 4-/5, L hip abd 4-/5 and R hip abd 4/5, L hip ext 4-/5 and R hip ext 4/5. Pt is able to walk on heels and toes without an issue. Tight IT band B ( L worse than R), TIght piriformis B ( L worse than R), Tight L TFL. Palpation: Pt is tender around the L greater trochanter and IT band. - Goals Goal 1:: I HEP Goal Time Frame: 4-6 Weeks Goal 2:: Increase L IT band, TFL and Pirifomris muscle length to help relieve pain from trochanteric bursitis. Goal Time Frame: 4-6 Weeks Goal 3:: Decrease L hip pain 1/10 with walking, stairs, and laying on L side. Goal Time Frame: 4-6 Weeks Goal 4:: Increase L hip strength to 4/5 hip abd, hip ext and hip flexion Goal Time Frame: 4-6 Weeks - Rehabilitation Potential Rehabilitation Potential: Good - Anticipated Interventions Patient/Client Instruction: Educate patient on: Condition, Plan of Care For the Purpose of:: To decrease pain, To increase ROM, To improve nutrient delivery to tissue, To improve muscle performance and motor function, To improve ability to perform ADL's, To increase tolerance to activity/condition/position, To improve performance and independence with ADL's, To improve ability of physical actions for home/community/work/leisure, To improve gait and locomotor functions, To improve health of tissue, To increase flexibility/ROM Therapeutic Exercise to Include: Strength training, Flexibilty training, Gait and locomotor training, Passive ROM, Active ROM For the Purpose of:: To decrease pain, To increase ROM, To improve nutrient delivery to tissue, To improve muscle performance and motor function, To increase tolerance to activity/condition/position, To improve performance and independence with ADL's, To decrease level of supervision to perform tasks, To improve health of tissue, To decrease soft tissue restriction, To increase flexibility/ROM Manual Therapy Techniques to Include: Passive ROM, Soft tissue mobilization For the Purpose of:: To decrease pain, To increase ROM, To improve nutrient delivery to tissue, To improve muscle performance and motor function, To improve ability to perform ADL's, To increase tolerance to activity/condition/position, To improve ability of physical actions for home/community/work/leisure, To improve gait and locomotor functions, To improve health of tissue, To increase flexibility/ROM Thank you for the opportunity to evaluate your patient. For Medicare and Medicare HMO plans, please review the plan of care and approve it. It will need to be FAXED BACK to us at [phone] for Medicare purposes. For Medicare only, by signing this I certify the plan of care. Please let me know if there are questions or concerns regarding this plan of care. Physician Signature: Date:
--- NOTE | 2018-12-09 13:51 | HP.PTDCNRP_ITS ---
HP - Discharge Summary (1) - Patient Information ANGELITO BECERRA was seen in my office for initial evaluation on 11/04/18. The following Plan of Care was established for this patient: Initial Frequency: 2x /Week Initial Duration: 6 Weeks - Anticipated Interventions Patient/Client Instruction: Educate patient on: Condition, Plan of Care For the Purpose of:: To decrease pain, To increase ROM, To improve nutrient d elivery to tissue, To improve muscle performance and motor function, To improve ability to perform ADL's, To increase tolerance to activity/condition/position, To improve performance and independence with ADL's, To improve ability of physical actions for home/community/work/leisure, To improve gait and locomotor functions, To improve health of tissue, To increase flexibility/ROM Therapeutic Exercise to Include: Strength training, Flexibilty training, Gait and locomotor training, Passive ROM, Active ROM For the Purpose of:: To decrease pain, To increase ROM, To improve nutrient delivery to tissue, To improve muscle performance and motor function, To increase tolerance to activity/condition/position, To improve performance and independence with ADL's, To decrease level of supervision to perform tasks, To improve health of tissue, To decrease soft tissue restriction, To increase flexibility/ROM Manual Therapy Techniques to Include: Passive ROM, Soft tissue mobilization For the Purpose of:: To decrease pain, To increase ROM, To improve nutrient delivery to tissue, To improve muscle performance and motor function, To improve ability to perform ADL's, To increase tolerance to activity/condition/position, To improve ability of physical actions for home/community/work/leisure, To improve gait and locomotor functions, To improve health of tissue, To increase flexibility/ROM This patient was last seen in our office 11/26/18. Pertinent comments regarding their Physical therapy will appear below: MARIAJOSE PT as pt reports that she is doing well and wishes to be discharged. At this point I will be discontinuing this patient from physical therapy. I would be happy to see this patient again in the future if found appropriate by the physician. Thank you! Avani Strickland, MPT
== END 2018-11-26 19:00 | disposition home or self-care (01) ==
LOC: PT 10:00
PROVIDERS: Family Provider Family Medicine; PCP Family Medicine; Visit Provider Orthopaedic Surgery
DX: M70.62 Trochanteric bursitis, left hip (principal)
CPT/HCPCS: 97035; 97110; 97161; 97530

== ENCOUNTER → 2019-06-04 13:22 | Outpatient (CLI) | payer MEDICARE, SELFPAY ==
[2019-06-04 13:15] VITALS: BMI 26.6
--- NOTE | 2019-06-04 13:25 | RAD_ITS ---
STUDY: X-RAY - PELVIS AND LEFT HIP REASON FOR EXAM: Pain, fall. TECHNIQUE: 2 views of the pelvis and hip. COMPARISON: Radiographs 10/03/2018. FINDINGS: There are soft tissue calcifications inferior to the ischial tuberosities bilaterally. There is mild vascular calcification. There are pelvic phleboliths. Normal bilateral iliac wings, sacroiliac joints and visualized sacrum. Normal bilateral superior and inferior pubic rami. Normal pubic symphysis. Normal bilateral ischial tuberosities. Normal visualized femoral head. Normal acetabulum. Normal hip joint. RAD/HIP, UNI W/ Pelvis 2-3 Views IMPRESSION: Soft tissue calcifications inferior to the ischial tuberosities bilaterally. Otherwise, unremarkable x-ray examination of the pelvis and left hip without interval change. Electronically Signed: Fadi Serrano MD at 13:43 EST Tel , Service support ,
== END ==
PROVIDERS: Family Provider Family Medicine; PCP Family Medicine; Referring Provider Physician Assistant; Visit Provider Physician Assistant
DX: M25.552 Pain in left hip (principal)
CPT/HCPCS: 73502

== ENCOUNTER 2019-07-20 09:00 | Outpatient (RCR) | payer MEDICARE, SELFPAY ==
[2019-06-04 13:15] VITALS: BMI 26.6
--- NOTE | 2019-06-25 07:05 | HP.PTEVAL_ITS ---
Patient's Visit Information ANGELITO BECERRA is a 69 year old F referred to Physical Therapy by GENTRY Swanson with a diagnosis of L greater trochanteric bursitis, IT band syndrome. Date of Evaluation: 06/12/19 Physical Therapist: Melvin Thomas DPT - Visit Plan Frequency: 2x /Week Duration: 4 Weeks Plan: Start with US to L greater trochanter, Piriformis/HS/TFL stretching. Once symptoms have started to reduce add in glute med/max activiation. Progressing to greater stability/CKC exercises. - Subjective Findings: Pt. is here today for her initial evaluation with diagnosis of L IT band syndrome, L greater trochanter bursitis. Pt. reprots having similar symptoms previously this year, but was relieved with PT and an injection. Pt. recieved another injection and is doing slightly better. Pt. reprots having 3/10 pain in L hip currently. Pt. does describe occasional LBP as well. Pt. denies N/T. Pt. had previously don her exercises, but has not been able to do them recently. Pt. reports no mech of injury. Pt. has increased pain with walking, sitting, palpation to area and is unable to lie on her L side. Pt. is hopeful to reduce symptoms in order to get back to all ADLs and recreational activities without limitations. - Pain L lateral hip Pain Intensity (Out of 10): 3 Pain Intensity Range: 1, 6 - Objective POSTURE: Pt. has slight R sided wt. shift in stance with trunk correction. Other than this normal posture. SLigth fwrd flexed. PALPATION: Pt. has increased tenderness along L greater trochanter, L TFL, L mid IT band and Piriformis muscle belly. NEURO: pt. has normal neuro, with sensation and DTR bilaterally. ROM: Pt. has slight limitation with lumbar flexion and extension with increased LBP with extension motions. L hip- flexion 120deg mild increase nW, abd 45deg NE, ext 10deg mild increase NW, IR 30deg NE, ER 45deg increase NW. MMT: LLE: ankle 5/5 throughout; knee- ext 4+/5 NE, flexion 4+/5 NE; hip- flexion 4/5 NE, adb 4/5 increae NW, ER 4/5 increase NW, IR 4/5 increase NW, ext 4/5 NE. GAIT: Pt. has increased pain with walking, decreased L stance phase. Pt. has increased lateral hip motion during contralateral stance phase. Incrased symptoms with increased walking. STAIRS: Pt. has increased pain with both ascending and descending. Pt. has increased pain during stance phase on Lside. - Goals Goal 1:: Pt. to be I with HEP. Goal Time Frame: 4-6 Weeks Goal 2:: STG: pt. to sit and walk in home without increase in symptoms. Goal Time Frame: 2-4 Weeks Goal 3:: STG: pt. to have negative Krystin's test. Goal Time Frame: 2-4 Weeks Goal 4:: STG: Pt. to sleep throughout the night without increase in symptoms. Goal Time Frame: 2-4 Weeks Goal 5:: LTG: Pt. has have increased LLE strength by 1/2 grade of all effected musculature. Goal Time Frame: 4-6 Weeks Goal 6:: LTG: Pt. to walk unlimited distances with normal pattern without incerase in symptoms. Goal Time Frame: 4-6 Weeks - Rehabilitation Potential Physical Therapy Diagnosis: Pt. has signs and symptoms consistent with L greater trochanteric bursitis, IT band syndrome, most likely during glute med/max weakness resulting in TFL over untilization and lack of L hip stability during stance phase of gait. Rehabilitation Potential: Good - Anticipated Interventions Patient/Client Instruction: Educate patient on: Condition, Plan of Care, Risk Factors, Benefits of Fitness Program For the Purpose of:: To foster healthy habits, To improve decision making, To facilitate caregiver knowledge, To improve self management, To prevent re- injury, To improve ability to perform tasks related to life management, To improve tolerance to ADL's Therapeutic Exercise to Include: Strength training, Power training, Endurance training, Agility training, Body mechanics, Postural training, Flexibilty training, Gait and locomotor training, Passive ROM, Active ROM, Dynamic Lumbar Stabilization For the Purpose of:: To decrease pain, To decrease swelling/inflammation, To increase ROM, To improve nutrient delivery to tissue, To improve muscle performance and motor function, To improve ability to perform ADL's, To improve gait and locomotor functions, To improve health of tissue, To decrease soft tissue restriction, To increase flexibility/ROM, To improve endurance, To improve balance Manual Therapy Techniques to Include: Mobilization, Passive ROM, Soft tissue mobilization For the Purpose of:: To decrease pain, To decrease swelling/inflammation, To increase ROM, To improve nutrient delivery to tissue Cryotherapy (ice pack, ice massage): Yes Ultrasound (thermal/non thermal): Yes For the Purpose of:: To decrease pain, To decrease swelling/inflammation, To increase ROM, To improve nutrient delivery to tissue, To increase oxygenation perfusion, To improve muscle performance and motor function Thank you for the opportunity to evaluate your patient. For Medicare and Medicare HMO plans, please review the plan of care and approve it. It will need to be FAXED BACK to us at [phone] for Medicare purposes. For Medicare only, by signing this I certify the plan of care. Please let me know if there are questions or concerns regarding this plan of care. Physician Signature: Date:
--- NOTE | 2019-12-10 08:49 | HP.PTDCSUM ---
It has been my pleasure to treat ANGELITO BECERRA referred by GENTRY Swanson, with the diagnosis of L greater trochanteric bursitis, IT band syndrome for a total of 8 visit(s). Discharge Date: 07/20/19 Please see the following information for a summary of their discharge status. Subjective: Pt. reports overall doing 95% better. Pt. reprots no pain currently. Pt. reports being HEP compliant. L lateral hip Pain Intensity (Out of 10): 0 % Improvement: 95 Objective/Function: Pt. is independet with her HEP. Pt. reports no longer hacing pain and is doing well. Pt. will be DC from PT at this point in time. Goal 1:: Pt. to be I with HEP. Goal Progress: Goal Met Goal 2:: STG: pt. to sit and walk in home without increase in symptoms. Goal Progress: Goal Met Goal 3:: STG: pt. to have negative Krystin's test. Goal Progress: Goal Met Goal 4:: STG: Pt. to sleep throughout the night without increase in symptoms. Goal Progress: Goal Met Goal 5:: LTG: Pt. has have increased LLE strength by 1/2 grade of all effected musculature. Goal Progress: Goal Met Goal 6:: LTG: Pt. to walk unlimited distances with normal pattern without incerase in symptoms. Goal Progress: Goal Met Plan: Start with US to L greater trochanter, Piriformis/HS/TFL stretching. Once symptoms have started to reduce add in glute med/max activiation. Progressing to greater stability/CKC exercises. Discharge Comments: Pt. was treated for her greater trochanteric bursitis. Pt. is doing well and will be DC to HEP at this point intime. She is no longer having any issues. If there are questions or concerns regarding this patient's physical therapy, please feel free to call me at [phone]. Thank you for the referral of this patient. Sincerely, Melvin Thomas DPT
== END 2019-07-20 19:00 | disposition home or self-care (01) ==
LOC: PT 09:00
PROVIDERS: Family Provider Family Medicine; PCP Family Medicine; Referring Provider Physician Assistant; Visit Provider Physician Assistant
DX: M76.30 Iliotibial band syndrome, unspecified leg (principal); M70.62 Trochanteric bursitis, left hip
CPT/HCPCS: 97035; 97110; 97161

== ENCOUNTER → 2020-01-01 07:16 | Outpatient (CLI) | payer MEDICARE, SELFPAY ==
[2019-11-19 09:21] VITALS: BMI 26.6
[2020-01-01 10:17] LABS: AST(SGOT) 11 U/L (15-37); Alanine Aminotransfer ALT/SGPT 27 U/L (13-56); Albumin, Serum 3.7 g/dL (3.2-5.0); Alkaline Phosphatase 63 U/L (45-117); Anion Gap 9 (5-15); BUN 11 mg/dL (7-18); BUN/Creat Ratio 17.7 RATIO (10-20); Calcium,Total 9.1 mg/dL (8.5-10.1); Chloride 99 mmol/L (98-107); Cholesterol 243 mg/dL (200); Creatinine, Serum 0.62 mg/dL (0.55-1.02); EST Glomerular Filtration Rate 101 mL/min (>60); Est Glom Filt Rate - Afr Amer 122 mL/min (>60); Globulin 3.7 g/dL (2.2-4.2); Glucose 80 mg/dL (74-106); High Density Lipoprotein 134 mg/dL; Potassium 3.8 mmol/L (3.5-5.1); Protein, Total 7.4 g/dL (6.4-8.2); Sodium Level 135 mmol/L (136-145); Triglycerides 82 mg/dL; Very Low Density Lipoprotein 16 mg/dL (5-40); Vitamin D,25 Hydroxy 34.2 ng/mL
== END ==
PROVIDERS: PCP Family Medicine; Referring Provider Family Medicine; Visit Provider Family Medicine
DX: Z00.00 Encounter for general adult medical examination without abnormal findings (principal)
CPT/HCPCS: 36415; 80053; 80061; 82306

== ENCOUNTER → 2020-01-08 12:33 | Outpatient (CLI) | payer MEDICARE, SELFPAY ==
[2019-11-19 09:21] VITALS: BMI 26.6
--- NOTE | 2020-01-08 11:38 | HP.PCM_ITS ---
History and Physical Date of Admission: 01/08/20 Danielle Gao 1950 ? ? REFERRING PHYSICIAN: Sherman Ortiz MD ? CHIEF COMPLAINT: Mammogram Abnormality ? HPI: The patient is a 69 year old female who presents with abnormal calcifications of left breast mammograms. She denies palpable breast masses. She denies nipple discharge. She denies breast pain. There is no breast or ovarian cancer known in family. Had left breast biopsy in - findings of cystic lobular involution, focal adenosis, sclerosing adenosis, foci florid ductal hyperplasia, terminal duct hyperplasia, fibroadenosis, apocrine cysts ? Mammograms 12/29/2019 IMPRESSION: SUSPICIOUS FINDING - BIOPSY SHOULD BE CONSIDERED The grouped pleomorphic calcifications in the left breast are suspicious of malignancy. ?A stereotactic biopsy is recommended. ? ? PAST MEDICAL HISTORY Diagnosis Date ? Edema ? ? Hemorrhage of gastrointestinal tract, unspecified ? ? Hemorrhage of rectum and anus ? ? Internal hemorrhoids without mention of complication ? ? Other and unspecified hyperlipidemia ? ? Seasonal allergies ? ? PAST SURGICAL HISTORY Procedure Laterality Date ? COLONOSCOP W/ OR W/O BRSH SPEC ? 05/03/06 ? COLONOSCOP W/ OR W/O BRSH SPEC N/A 09/27/2016 ? COLONOSCOP W/ OR W/O BRSH SPEC ? 04/08/2017 ? repeat 5 years ? RUTH REVISION, ONE TOE ? 05/07/2012 ? 2 toes, 2nd and third ? LUMPECTOMY/RADIOTHERAPY DIAG MAMM/A10 ? 1988 ? left breast ? PAST SURGICAL HISTORY OF ? ? ? catarct surgery both eyes ? REMOVE TONSILS/ADENOIDS,<12 Y/O ? ? ? TOTAL ABDOM HYSTERECTOMY ? September 1987 ? ? Current Outpatient Medications Medication Sig ? LORATADINE 10 MG TAB Take one (1) tablet daily as needed. ? atorvastatin calcium(LIPITOR 10 MG TAB) Take one(1) tablet daily. ? MULTIVITAMIN TAB Take one(1) tablet daily. ? CALCIUM + D 600 MG-200 UNIT TAB Take one(1) tablet daily. ? NATURAL E 400 400 UNIT CAP Take one(1) tablet daily. ? MEDICATION, NON-DATABASE potassium 550 mg 1 per day ? ASPIRIN 81 MG TAB Take one (1) tablet daily . ? HYDROCHLOROTHIAZIDE 25 MG TAB Take one(1) tablet daily. ? estradiol (ESTRACE) 0.01 % (0.1 mg/gram) vaginal cream APPLY 1 GRAM NIGHT LY FOR 2 WEEKS THEN ONE-HALF (1/2) GRAM 1 TO 3 TIMES WEEKLY FOR MAINTENANCE ? NIACINAMIDE 100 MG TAB Take one(1) tablet daily. ? ? ALLERGIES: Codeine ? PERSONAL HISTORY: Social History ? Tobacco Use ? Smoking status: Never Smoker ? Smokeless tobacco: Never Used Substance Use Topics ? Alcohol use: Yes ? ? Alcohol/week: 2.5 standard drinks ? ? Types: 1 Glasses of Wine (5oz) per week ? ? Comment: occasionally ? Drug use: No ? FAMILY HISTORY Problem Relation Age of Onset ? Cancer Mother ? ? Pancreatic ? Heart Father ? ? Heart attack/hypertension ? ? REVIEW OF SYSTEMS: General - denies fevers, denies anorexia, denies weight loss Cardiovascular - denies chest pain, denies history of [place] Pulmonary - denies shortness of breath, denies coughing up blood Gastrointestinal - denies abdominal pain, denies hematemesis, denies blood in stools Neurological - denies seizures, denies chronic numbness/weakness of extremities, denies chronic headaches Genitourinary - denies burning with urination, denies blood in urine Hematological - denies spontaneous/prolonged bleeding, denies history of blood transfusions or blood clots Skin - denies nonhealing skin wounds Musculoskeletal - has some knee arthritis Endocrine - denies diabetes, no thyroid problems Psychological ? denies hallucinations Obstetrical - menarche onset at age 13, first at age 18, , breast feeding 6-7 m, BCP use age 19 for < 1y, surgical menopause age 38 for menometrorrhagia - hysterectomy with unilateral SO, denies HRT ? PHYSICAL EXAMINATION: General: The patient is 69 year old female, well nourished, well hydrated in no acute distress. The patient is oriented to time, place, and person. VITALS: Pulse 113, temperature 37 ?C (98.6 ?F), temperature source Temporal, resp. rate 16, weight 73.9 kg (163 lb), SpO2 98 %. Body mass index is 27.66 kg/m?. Head ? Normocephalic. EOM intact with sclera clear and no icterus noted. Wearing glasses. Mouth with mucus membranes moist. Neck - supple with no jugular venous distention noted. Trachea is midline. No carotid bruits noted. No thyroid enlargement or thyroid nodules detected. No masses noted. Chest/breast ? no asymmetry of breasts noted, no suspicious skin lesions noted - healed upper outer curvilinear incisional site of left breast, no nipple discharge and both nipples everted, no breast masses noted Lungs ? clear to auscultation. Normal breath sounds. No rales/rhonchi/wheezing noted. No labored breathing noted, such as retractions. No cough heard. Heart ? normal S1 and S2 auscultated. No rubs/clicks/murmurs noted. Regular rate. Abdomen ? soft and benign. Normal bowel sounds No abdominal bruits noted. Difficult to determine if any masses or organomegaly due to body habitus. Extremities ? no calf tenderness noted. No pitting edema noted. Skin ? normal skin integrity. Lymph ? no cervical adenopathy detected, no supraclavicular adenopathy detected, no axillary adenopathy detected Neurological ? gait normal, no focal deficits noted Psych ? calm and appropriate RADIOLOGIC STUDIES: As Noted ? ? IMPRESSION: abnormal left breast mammographic calcifications ? PLAN: I have discussed the above with the patient. I have reviewed the radiographs with the patient and pointed out the abnormalities. I have offered left breast stereotactic biopsy. I have explained the procedure to the patient. I have counseled the patient as to the risks of the procedure, including but not limited to: infection, bleeding, injury to any blood vessels/nerves, scar tissue, wound infections, complications of anesthesia, etc. ? the patient understands. The patient wishes to proceed. ? I have answered all questions to the patient?s satisfaction and the patient has no further questions. . Diagnoses: (R92.8) Abnormal mammogram (primary encounter diagnosis) Return to Clinic: The patient is instructed to follow-up with me after the procedure. ? Maria Teresa Jones MD
--- NOTE | 2020-01-08 13:00 | BRBX_PTH ---
PATIENT: ANGELITO BECERRA LOC: [facility] U#:[id number] AGE/SX: 75/F ROOM: RE01/08/[address]: Dr. Maria Teresa Jones MD : 1950 BED: DIS: SPEC #: [id number] RECD: 01/08/20 13:42 STATUS: TRUNG RODRIGUEZKourtney #: [id number] KEITH: 01/08/20 13:[address]: Maria Teresa Jones DEPT: SURGICAL PATHOLOGY RECD BY: Cristina Adamson ENTERED: 01/11/20 10:58 SP TYPE: BREAST BX OTHR DR: Dr. Sid Varghese MD Tissues: Left breast, NOS Procedures: Surgery Specimen Level IV HEADER OPERATION: Left stereotactic breast biopsy PRE-OP DIAGNOSIS: Left breast central middle depth microcalcifications TISSUE SUBMITTED: Left breast core tissue ISCHEMIC TIME: 1 minute FIXATION TIME: 78.5 hours MICROSCOPIC DIAGNOSIS Left central breast, stereotactic needle core biopsy: Mild fibrocystic change. Involutional change with clustered Banal microcalcifications. AM:elian 01/12/20 MICROSCOPIC DESCRIPTION Slides are reviewed. GROSS DESCRIPTION Received in fixative is one container labeled with the patient name and designated left breast. The specimen consists of multiple elongated fragments of yang-yellow fibroadipose tissue that in aggregate measure 5 x 3 x 0.3 cm. The entire specimen is submitted in two cassettes. / SJ:elian 01/11/20 TC:5 CPT: 54398
--- NOTE | 2020-01-08 13:54 | PCM.OPRPT ---
Report of Operation Date of Procedure: 01/08/20 Pre-Operative Diagnosis: abnormal calcifications on left breast mammograms Post-Operative Diagnosis: same Surgery/Procedure Performed:: left stereotactic breast biopsy Description of Surgical Findings:: abnormal calcifications noted in the area of the previous breast lumpectomy Type of Anesthesia:: Local - 1% xylocaine Specimen's removed: left breast tissue Estimated Blood Loss (mL): < 1 ml Description of Procedure: After informed consent was given, the patient was brought into the breast biopsy suite. Appropriate time out protocol was followed. She was then placed in the prone position on the stereotactic biopsy table. The patient?s left breast was then placed in the opening at the head of the table. A cleaning and washing equipment operator compression mammogram was then obtained in the CC view. The suspicious radiological lesion was then identified. Stereo pictures of the lesion were then taken for XYZ coordinates. The Mammotome biopsy stylus was then positioned where it would be entering into the patient?s breast. The skin at this site was then cleansed with a surgical skin preparation. The skin and subcutaneous tissues at this site were then infiltrated with 1% xylocaine. A small skin incision was made with an 11 blade scalpel. The biopsy stylus was then positioned into the patient?s breast at the proper coordinates of depth. Using the Mammotome vacuum-assist device, several core samples of breast tissue were obtained. A specimen mammogram was then obtained. I reviewed this personally and noted that the abnormal calcifications were within the specimen. A hemostatic marker clip was then placed into the biopsy cavity and a cleaning and washing equipment operator film revealed that it was properly deployed. The patient was then placed in the supine position and pressure was applied to the breast until no active bleeding was noted. A nylon suture was placed to reapproximate the skin. A unilateral mammogram in the CC and MLO view were then taken which revealed that the marker clip was in the same area as the previous suspicious lesion. The patient tolerated the procedure well and was discharged from the breast biopsy suite in good condition. - Complications none noted
== END ==
PROVIDERS: PCP Family Medicine; Referring Provider Surgery; Visit Provider Surgery
DX: R92.1 Mammographic calcification found on diagnostic imaging of breast (principal); R92.8 Other abnormal and inconclusive findings on diagnostic imaging of breast; E78.5 Hyperlipidemia, unspecified; Z79.82 Long term (current) use of aspirin; Z79.899 Other long term (current) drug therapy; Z88.5 Allergy status to narcotic agent
CPT/HCPCS: 19081; 88305; J7050; A4648

== ENCOUNTER → 2020-12-23 10:15 | Outpatient (CLI) | payer MEDICARE, SELFPAY ==
[2020-03-09 09:11] VITALS: BMI 26.6
--- NOTE | 2020-12-23 10:19 | STEWCON_ITS ---
Reason For Study: RBBB; Abnormal EKG; Pre-Op Stress Results Protocol: Khadar Protocol WITH DEFINITY Maximum Predicted HR: 150 bpm Target HR: 128 bpm % Maximum Predicted HR: 97 % DurationHeart Rate Stage (mm:ss) (bpm) BP Comment Baseline 104 126/70No Chest Pain; 4 ML Definity Khadar Protocol Stage I 3:00 117 150/68No Chest Pain Khadar Protocol Stage II 3:00 133 154/64No Chest Pain Khadar Protocol Stage III 1:30 146 / No Chest Pain; Right Knee Pain Recovery 96 132/70No Chest Pain Stress Duration: 7:30 mm:ss Maximum Stress HR: 146 bpm METS: 9 Baseline Echocardiogram Findings Stress Echo Wall motion Data Resting WM Intermediate WM Stress WM Resting Wall Motion Wall Motion Stress All segments Normal. All segments Hyperkinetic. Ejection Fraction 55 %. Ejection Fraction 65 %. Stress Results Heart rate response: Appropriate Blood pressure response: Normal resting blood pressure-appropriate response Arrhythmias: none Functional capacity: Good Stop secondary to: knee pain. EKG Data Baseline ECG: Sinus rhythm; right bundle branch block. Peak exercise ECG: No obvious ECG changes. Symptoms with Stress No complaint of chest discomfort during exercise or recovery. Doppler Measurements & Calculations TR max chantal: 296.4 cm/sec TR max P.1 mmHg ECHO/Stress Test Echo W/Contrast Interpretation Summary Contrast injection performed Negative (adequate) stress echocardiogram Comment: A. Based upon color-flow Doppler evidence there appears to be mild tricuspid va lve regurgitation B. Based upon spectral Doppler evidence there appears to be an estimated RV sys tolic pressure of approximately 35 mmHg Ordering Physician: Sid Varghese Referring Physician: Tamir Mcguire Performed By: Paulette Jay, RDCS, RVT
== END ==
PROVIDERS: PCP Family Medicine; Referring Provider Family Medicine; Visit Provider Family Medicine
DX: I45.10 Unspecified right bundle-branch block (principal); R94.31 Abnormal electrocardiogram [ECG] [EKG]
CPT/HCPCS: 93017; 93350; Q9957; A4216; C8928; J3490

== ENCOUNTER 2021-03-24 08:30 | Outpatient (RCR) | payer MEDICARE, SELFPAY ==
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
--- NOTE | 2021-03-24 09:05 | HP.PTDCSUM ---
It has been my pleasure to treat ANGELITO BECERRA referred by Dr. Pierre Bedoya MD, with the diagnosis of R TKA . *GOES BY WILDER for a total of 12 visit(s). Discharge Date: Please see the following information for a summary of their discharge status. Subjective: I am ready for discharge R knee Pain Intensity (Out of 10): 1 % Improvement: 90 Objective/Function: R knee pain 1/10, described mostly as achy. R knee ROM: 0-8-114. R knee MMT: 4+/5. Pt will be continuing I with gym routine at this time Goal 1:: Decrease R knee pain x 50% to aid with sleep Goal Progress: Goal Met Goal 2:: Increase R knee ROM x 20 degrees to aid with improving transfers Goal Progress: Goal Met Goal 3:: Increase R knee strength x 1 grade to aid with stair negotiation Goal Progress: Goal Met Goal 4:: I with HEP Goal Progress: Goal Met Plan: Discharge to I H and W program If there are questions or concerns regarding this patient's physical therapy, please feel free to call me at [phone]. Thank you for the referral of this patient. Sincerely, Taras Myers, PT, ATC Balance/Gait/Functional tests - Balance/Special Test Scores Lower Extremity Functional Score: 56
== END 2021-03-24 12:59 | disposition home or self-care (01) ==
LOC: PT 08:30
PROVIDERS: PCP Family Medicine; Referring Provider Specialist; Visit Provider Specialist
DX: Z47.1 Aftercare following joint replacement surgery (principal); Z96.651 Presence of right artificial knee joint
CPT/HCPCS: 97113; 97161; 97164

== ENCOUNTER → 2022-01-30 | Outpatient (CLI) | payer MEDICARE, SELFPAY ==
[2022-01-30 10:31] LABS: Anion Gap 7 (5-15); BUN 10 mg/dL (7-18); BUN/Creat Ratio 16.1 RATIO (10-20); Calcium,Total 9.1 mg/dL (8.5-10.1); Chloride 102 mmol/L (98-107); Cholesterol 209 mg/dL (200); Creatinine, Serum 0.62 mg/dL (0.55-1.02); EST Glomerular Filtration Rate 101 mL/min (>60); Est Glom Filt Rate - Afr Amer 122 mL/min (>60); Glucose 79 mg/dL (74-106); High Density Lipoprotein 109 mg/dL; Potassium 3.7 mmol/L (3.5-5.1); Sodium Level 137 mmol/L (136-145); Triglycerides 122 mg/dL; Very Low Density Lipoprotein 24 mg/dL (5-40)
== END | disposition home or self-care (01) ==
LOC: MTLAB 07:36
PROVIDERS: PCP Family Medicine; Referring Provider Family Medicine; Visit Provider Family Medicine
DX: I10 Essential (primary) hypertension (principal)
CPT/HCPCS: 36415; 80048; 80061

== ENCOUNTER → 2022-02-06 | Outpatient (CLI) | payer MEDICARE, SELFPAY ==
--- NOTE | 2022-02-06 08:11 | BI_ITS ---
MAMMOGRAPHY - BILATERAL SCREENING 3-D TOMOSYNTHESIS REASON FOR EXAM: Female, 72 years old. SCREENING PERTINENT HISTORY: No significant family history. TECHNIQUE: 2-D mammograms and 3-D Tomosynthesis of the breast (s) were performed. CAD was performed. COMPARISON: 12/24/2019 FINDINGS: The breast composition is composed of scattered fibroglandular density. Scattered benign calcifications are seen. No dense spiculated masses or suspicious microcalcifications are identified. No architectural distortion is identified. There is no skin thickening or retraction. There has been no significant change since the prior study. BI/SCRN MAMM (CAD)W/LIBERTAD BILAT IMPRESSION: No mammographic signs of malignancy. Routine yearly mammograms recommended. ASSESSMENT CATEGORY: BIRADS Category 1: Negative. A letter regarding these results will be sent to the patient by the facility within 30 days. FOLLOW UP RECOMMENDATION: Yearly follow up mammogram recommended. (A) Approximately 10% of breast cancers are not detected by mammography. A normal mammogram should not delay biopsy of a clinically suspicious abnormality. Electronically Signed: Wyatt Mathias MD at 9:07 EDT ,
== END | disposition home or self-care (01) ==
LOC: OPBI 08:10
PROVIDERS: PCP Family Medicine; Visit Provider Family Medicine
DX: Z12.31 Encounter for screening mammogram for malignant neoplasm of breast (principal)
CPT/HCPCS: 77063; 77067

== ENCOUNTER 2022-05-18 08:30 | Outpatient (RCR) | payer MEDICARE, SELFPAY ==
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
--- NOTE | 2022-09-24 09:50 | HP.PT.NRP ---
ANGELITO BECERRA was seen in my office for initial evaluation on 04/25/22. The following Plan of Care was established for this patient: Initial Frequency: 2x /Week Initial Duration: 6 Weeks Patient/Client Instruction: Educate patient on: Condition, Plan of Care For the Purpose of:: To decrease pain, To decrease swelling/inflammation, To increase ROM, To improve nutrient delivery to tissue, To improve muscle performance and motor function, To improve ability to perform ADL's, To increase tolerance to activity/condition/position, To improve performance and independence with ADL's, To improve ability of physical actions for home/community/work/leisure, To improve gait and locomotor functions, To improve health of tissue, To decrease soft tissue restriction, To increase flexibility/ROM, To assume or resume ADL's Therapeutic Exercise to Include: Strength training, Flexibilty training, Gait and locomotor training, Neuromotor development, Passive ROM, Active ROM For the Purpose of:: To decrease pain, To decrease swelling/inflammation, To increase ROM, To improve nutrient delivery to tissue, To improve muscle performance and motor function, To improve ability to perform ADL's, To increase tolerance to activity/condition/position, To improve performance and independence with ADL's, To decrease level of supervision to perform tasks, To improve ability of physical actions for home/community/work/leisure, To improve gait and locomotor functions, To improve health of tissue, To decrease soft tissue restriction, To increase flexibility/ROM, To improve balance Functional Training to Include: Gait training For the Purpose of:: To improve gait and locomotor functions Manual Therapy Techniques to Include: Mobilization, Passive ROM, Functional dry needling, Soft tissue mobilization For the Purpose of:: To decrease pain, To decrease swelling/inflammation, To increase ROM, To improve nutrient delivery to tissue, To improve muscle performance and motor function, To improve ability to perform ADL's, To increase tolerance to activity/condition/position, To improve health of tissue, To decrease soft tissue restriction, To increase flexibility/ROM Ultrasound (thermal/non thermal): Yes - PRN For the Purpose of:: To decrease pain, To decrease swelling/inflammation, To increase ROM, To improve nutrient delivery to tissue, To increase oxygenation perfusion, To improve muscle performance and motor function This patient was last seen in our office 05/18/22. Pertinent comments regarding their Physical therapy will appear below: DC PT At this point I will be discontinuing this patient from physical therapy. I would be happy to see this patient again in the future if found appropriate by the physician. Thank you! Avani Strickland, KATIA Balance/Gait/Functional tests - Balance/Special Test Scores Lower Extremity Functional Score: 70
== END 2022-05-18 19:00 | disposition home or self-care (01) ==
LOC: PT 08:30
PROVIDERS: PCP Family Medicine; Referring Provider Physician Assistant Surgical; Visit Provider Physician Assistant Surgical
DX: M72.2 Plantar fascial fibromatosis (principal)
CPT/HCPCS: 97035; 97110; 97140; 97161

== ENCOUNTER → 2022-10-05 | Outpatient (CLI) | payer MEDICARE, SELFPAY ==
[2022-10-05 11:09] LABS: ALB/GLOB Ratio 1.1 RATIO (0.9-2.4); AST(SGOT) 15 U/L (15-37); Alanine Aminotransfer ALT/SGPT 21 U/L (13-56); Albumin, Serum 3.8 g/dL (3.2-5.0); Alkaline Phosphatase 70 U/L (45-117); Anion Gap 6 (5-15); BUN 12 mg/dL (7-18); BUN/Creat Ratio 18.8 RATIO (10-20); Calcium,Total 9.4 mg/dL (8.5-10.1); Chloride 103 mmol/L (98-107); Cholesterol 202 mg/dL (200); Creatinine, Serum 0.64 mg/dL (0.55-1.02); EST Glomerular Filtration Rate 97 mL/min (>60); Est Glom Filt Rate - Afr Amer 118 mL/min (>60); Globulin 3.6 g/dL (2.2-4.2); Glucose 81 mg/dL (74-106); High Density Lipoprotein 113 mg/dL; Protein, Total 7.4 g/dL (6.4-8.2); Sodium Level 135 mmol/L (136-145); Triglycerides 69 mg/dL; Very Low Density Lipoprotein 14 mg/dL (5-40)
== END | disposition home or self-care (01) ==
PROVIDERS: PCP Family Medicine; Referring Provider Family Medicine; Visit Provider Family Medicine
DX: I10 Essential (primary) hypertension (principal)
CPT/HCPCS: 36415; 80053; 80061

== ENCOUNTER → 2023-02-19 | Outpatient (CLI) | payer MEDICARE, SELFPAY ==
--- NOTE | 2023-02-19 08:50 | BI_ITS ---
MAMMOGRAPHY - BILATERAL SCREENING REASON FOR EXAM: Female, 73 years old. Routine annual screening examination. PERTINENT HISTORY: History of prior left excisional breast biopsy and left stereotactic breast biopsy. TECHNIQUE: Digital bilateral breast libertad (3D mammographic acquisition) in the CC and MLO projections. 2-D mediolateral oblique (MLO) and craniocaudad (CC) views of both breasts were obtained. CAD: Full Field Digital Mammography with Computer Added Detection was performed. COMPARISON: Comparison is made with prior study date February 06, 2022. FINDINGS: Breast Composition: There are scattered areas of fibroglandular density. There are no dominant masses or suspicious calcifications. A surgical clip is seen in the upper central portion of the left breast with resultant scarring and breast deformity in keeping with history of prior excisional biopsy. This is unchanged. Stable scattered bilateral calcifications. No other significant abnormalities are identified. There has been no significant change since the prior study. BI/SCRN MAMM (CAD)W/LIBERTAD BILAT IMPRESSION: Stable bilateral screening mammogram. Yearly follow-up mammogram recommended. (A) ASSESSMENT CATEGORY: BIRADS Category 2: Benign. A letter regarding these results will be sent to the patient by the facility within 30 days. Approximately 10% of breast cancers are not detected by mammography. A normal mammogram should not delay biopsy of a clinically suspicious abnormality. [id number] Electronically Signed: Dickson Reed MD at 9:00 EDT ,
--- NOTE | 2023-02-19 08:56 | BD_ITS ---
STUDY: DUAL ENERGY X-RAY ABSORPTIOMETRY / DXA REASON FOR EXAM: Female, 73 years old. [id number] TECHNIQUE: Bone Mineral Density (BMD) measurements of lumbar spine and bilateral hips were obtained. COMPARISON: Comparison is made with prior study dated September 20, 2016. FINDINGS: Lumbar Spine (L1-L4): g/cm2 (1.292) / T-score (2.2) / Z-score (4.5) Findings are suggestive of normal bone density with a low fracture risk. Left Femur Total: g/cm2 (1.205) / T-score (2.2) / Z-score (3.8) Left Femoral Neck: g/cm2 (1.069) / T-score (2.0) / Z-score (4.0) Right Femur Total: g/cm2 (1.151) / T-score (1.7) / Z-score (3.4) Right Femoral Neck: g/cm2 (1.062) / T-score (1.9) / Z-score (3.9) The T-Scores on the most recent prior examination were: Lumbar Spine (L1-L4): There has been improvement of bone density since the previous examination. Left Femur Total: which represents an improvement of 1.8%. Right Femur Total: which represents a worsening of 4.5%. BD/Dexa Bone Density Study IMPRESSION: The patient is considered normal as outlined below according to World Seth Organization (WHO) criteria with a low fracture risk. There has been improvement of bone density since the previous examination. Reference Information: The T-score is the number of standard deviations above or below the standard which is normal for young adults at their peak bone mineral density. The World Health Organization (WHO) interprets the T-scores as follows: Above -1 Normal bone density Between -1 and -2.5 Osteopenia Equal to / or below -2.5 Osteoporosis As a practical clinical guideline, osteopenia may be graded as follows: Mild -1 through -1.5 Moderate -1.6 through -2.0 Severe -2.1 through -2.4 The Z-score is the number of standard deviations above or below age-matched controls. A Z-score of less than -1.5 would be considered abnormal. References: 1. NIH Osteoporosis and Related Bone Diseases www osteo.org 2. International Society for Clinical Densitometry www iscd.org 3. National Osteoporosis Foundation www nof.org Electronically Signed: Dickson Reed MD at 13:15 EDT ,
[2023-02-19 09:58] LABS: ALB/GLOB Ratio 1.1 RATIO (0.9-2.4); AST(SGOT) 16 U/L (15-37); Alanine Aminotransfer ALT/SGPT 19 U/L (13-56); Albumin, Serum 3.7 g/dL (3.2-5.0); Alkaline Phosphatase 66 U/L (45-117); Anion Gap 7 (5-15); BUN 13 mg/dL (7-18); BUN/Creat Ratio 21.9 RATIO (10-20); Calcium,Total 9.4 mg/dL (8.5-10.1); Chloride 101 mmol/L (98-107); Cholesterol 186 mg/dL (200); Creatinine, Serum 0.59 mg/dL (0.55-1.02); EST Glomerular Filtration Rate 105 mL/min (>60); Est Glom Filt Rate - Afr Amer 128 mL/min (>60); Globulin 3.3 g/dL (2.2-4.2); Glucose 83 mg/dL (74-106); High Density Lipoprotein 103 mg/dL; Potassium 3.8 mmol/L (3.5-5.1); Sodium Level 135 mmol/L (136-145); Triglycerides 75 mg/dL; Very Low Density Lipoprotein 15 mg/dL (5-40)
== END | disposition home or self-care (01) ==
LOC: OPBD 08:20
PROVIDERS: PCP Family Medicine; Referring Provider Family Medicine; Visit Provider Family Medicine
DX: Z00.00 Encounter for general adult medical examination without abnormal findings (principal); Z12.31 Encounter for screening mammogram for malignant neoplasm of breast; I10 Essential (primary) hypertension; Z78.0 Asymptomatic menopausal state
CPT/HCPCS: 36415; 77063; 77067; 77080; 80053; 80061

== ENCOUNTER → 2024-02-19 | Outpatient (CLI) | payer MEDICARE, SELFPAY ==
[2024-02-19 11:13] LABS: Anion Gap 8 (5-15); BUN 12 mg/dL (7-18); BUN/Creat Ratio 19.6 RATIO (10-20); Calcium,Total 9.5 mg/dL (8.5-10.1); Chloride 104 mmol/L (98-107); Cholesterol 208 mg/dL (200); Creatinine, Serum 0.61 mg/dL (0.55-1.02); EST Glomerular Filtration Rate 102 mL/min (>60); Est Glom Filt Rate - Afr Amer 123 mL/min (>60); Glucose 89 mg/dL (74-106); High Density Lipoprotein 103 mg/dL; Potassium 4.1 mmol/L (3.5-5.1); Sodium Level 137 mmol/L (136-145); Triglycerides 90 mg/dL; Very Low Density Lipoprotein 18 mg/dL (5-40)
== END | disposition home or self-care (01) ==
LOC: MTLAB 07:19
PROVIDERS: PCP Family Medicine; Referring Provider Family Medicine; Visit Provider Family Medicine
DX: Z00.00 Encounter for general adult medical examination without abnormal findings (principal)
CPT/HCPCS: 36415; 80048; 80061

== ENCOUNTER → 2024-02-26 | Outpatient (CLI) | payer MEDICARE, SELFPAY ==
--- NOTE | 2024-02-26 08:30 | BI_ITS ---
MAMMOGRAPHY - BILATERAL SCREENING REASON FOR EXAM: Female, 74 years old. Routine annual screening examination. PERTINENT HISTORY: Non-contributory. History of prior left stereotactic breast biopsy. Remote left excisional breast biopsy. TECHNIQUE: Digital bilateral breast libertad (3D mammographic acquisition) in the CC and MLO projections. 2-D mediolateral oblique (MLO) and craniocaudad (CC) views of both breasts were obtained. CAD: Full Field Digital Mammography with Computer Added Detection was performed. COMPARISON: Comparison is made with prior study dated February 19, 2023 and February 06, 2022. FINDINGS: Breast Composition: There are scattered areas of fibroglandular density. There are no dominant masses or suspicious calcifications. A tissue clip marker is in the upper central portion of the left breast. Postoperative changes are seen at the biopsy site in the upper central portion of the left breast. Stable scattered bilateral microcalcifications. No other significant abnormalities are identified. There has been no significant change since the prior study. BI/SCRN MAMM (CAD)W/LIBERTAD BILAT IMPRESSION: Stable bilateral screening mammogram. Yearly follow-up mammogram recommended. (A) ASSESSMENT CATEGORY: BIRADS Category 2: Benign. A letter regarding these results will be sent to the patient by the facility within 30 days. Approximately 10% of breast cancers are not detected by mammography. A normal mammogram should not delay biopsy of a clinically suspicious abnormality. [id number] Electronically Signed: Dickson Reed MD at 10:17 EDT ,
== END | disposition home or self-care (01) ==
LOC: OPBI 08:28
PROVIDERS: PCP Family Medicine; Referring Provider Family Medicine; Visit Provider Family Medicine
DX: Z12.31 Encounter for screening mammogram for malignant neoplasm of breast (principal)
CPT/HCPCS: 77063; 77067

== ENCOUNTER → 2024-04-13 | Outpatient (CLI) | payer MEDICARE, SELFPAY ==
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
== END | disposition home or self-care (01) ==
PROVIDERS: PCP Family Medicine; Referring Provider Family Medicine; Visit Provider Family Medicine
DX: R07.89 Other chest pain (principal)
CPT/HCPCS: 71046

== ENCOUNTER → 2024-09-07 | Outpatient (CLI) | payer MEDICARE, SELFPAY ==
[2024-09-07 14:13] LABS: Cholesterol 203 mg/dL (<=200); High Density Lipoprotein 112 mg/dL; Low Density Lipoprotein Calc. 73 mg/dL; Triglycerides 91 mg/dL; Very Low Density Lipoprotein 18 mg/dL (5-40); cholesterol:hdl ratio screen 1.81
== END | disposition home or self-care (01) ==
LOC: MTLAB 09:23
PROVIDERS: PCP Family Medicine; Referring Provider Family Medicine; Visit Provider Family Medicine
DX: E78.00 Pure hypercholesterolemia, unspecified (principal)
CPT/HCPCS: 36415; 80061

== ENCOUNTER → 2025-03-01 | Outpatient (CLI) | payer MEDICARE, SELFPAY ==
--- NOTE | 2025-03-01 08:08 | BI_ITS ---
EXAM: SCRN MAMM (CAD)W/LIBERTAD BILAT DATE: 03/01/2025 CLINICAL HISTORY: F, Age 75 y/o , SCREENING TECHNIQUE: Procedure Code: [id number] Modality: MG Procedure: SCRN MAMM (CAD)W/LIBERTAD BILAT COMPARISON: Prior exam(s) dated 02/26/2024, 02/19/2023 and 02/06/2022. FINDINGS: TISSUE DENSITY: There are scattered areas of fibroglandular density. Bilateral Breast Mammographic Findings: There are no suspicious masses, suspicious cluster of microcalcifications, architectural distortion or secondary signs of malignancy identified in either breast. There has been no significant change since the prior study. Clusters of benign-appearing round and punctate calcifications are seen in both breasts. Benign round calcifications are noted in both breasts. Benign vascular calcifications are seen in both breasts. A radiopaque clip is seen in the superior aspect of the left breast. The biopsy was benign. Post biopsy site is stable. The overall findings are similar when compared to the prior studies. BI/SCRN MAMM (CAD)W/LIBERTAD BILAT IMPRESSION: Benign screening mammogram OVERALL FINAL ASSESSMENT BI-RADS 2: BENIGN RECOMMENDATION: Routine annual follow-up in 1 Year A letter with findings and recommendations will be mailed to the patient. Reading Location: [id number]
== END | disposition home or self-care (01) ==
LOC: OPBI 08:06
PROVIDERS: PCP Family Medicine; Referring Provider Family Medicine; Visit Provider Family Medicine
DX: Z12.31 Encounter for screening mammogram for malignant neoplasm of breast (principal)
CPT/HCPCS: 77063; 77067

== ENCOUNTER → 2025-03-12 | Outpatient (CLI) | payer MEDICARE, SELFPAY ==
--- NOTE | 2025-03-12 12:43 | ECHOD_ITS ---
Reason For Study Reason For Study: MURMUR Procedure This was a 2D Doppler, Color Flow transthoracic echocardiogram. Exam performed in department. Left Ventricle Normal LV size. Left ventricular systolic function is normal. The left ventricular ejection fraction is 60 %. Stage 1 diastolic dysfunction. No regional wall motion abnormalities noted. Right Ventricle Normal RV size. Normal systolic function. Atria Normal left atrium. Normal right atrium. Mitral Valve There is mild to moderate mitral annular calcification. Tricuspid Valve Normal tricuspid valve. Mild (1+) tricuspid valve insufficiency. Pulmonary artery systolic pressure is 34 mmHg. Aortic Valve Trisinus/trileaflet aortic valve. Mild focal aortic valve thickening. Pulmonic Valve Normal pulmonic valve. Trivial pulmonic valve insufficiency identified. Great Vessels Normal aortic root. The pulmonary artery is normal size. Inferior vena cava collapse with respiration. Pericardium/Pleural No pericardial effusion. MMode/2D Measurements & Calculations LVIDd: 4.5 cm IVSd: 0.97 cm Ao root diam: 2.8 cm LVIDs: 2.5 cm LVPWd: 0.97 cm RVDd: 3.2 cm FS: 44.3 % asc Aorta Diam: 3.7 cm LAV(MOD-bp): 39.2 ml LVAd ap4: 23.5 cm2 LAV(MOD-bp) Indexed: 22.0 ml/m2 LVLd ap4: 7.2 cm LAV(MOD-sp2): 40.7 ml EDV(MOD-sp4): 64.5 ml LAV(MOD-sp4): 36.0 ml EDV(sp4-el): 65.3 ml LVAs ap4: 11.6 cm2 LVLs ap4: 5.7 cm ESV(MOD-sp4): 22.2 ml ESV(sp4-el): 20.0 ml EF(MOD-sp4): 65.6 % EF(sp4-el): 69.4 % LVAd ap2: 18.4 cm2 SV(MOD-sp4): 42.3 ml SV(MOD-sp2): 27.0 ml LVLd ap2: 6.6 cm SI(MOD-sp4): 23.8 ml/m2 SI(MOD-sp2): 15.2 ml/m2 EDV(MOD-sp2): 44.6 ml EDV(sp2-el): 43.6 ml LVAs ap2: 10.2 cm2 LVLs ap2: 5.3 cm ESV(MOD-sp2): 17.6 ml ESV(sp2-el): 16.8 ml EF(MOD-sp2): 60.5 % SV(sp4-el): 45.3 ml LA dimension(2D): 3.3 cm LA A4 area: 14.4 cm2 RA A4 area: 11.3 cm2 TAPSE: 2.2 cm Time Measurements MV dec time: 0.20 sec Doppler Measurements & Calculations MV E max han: 82.7 cm/sec Lat Peak E' Han: 7.7 cm/sec Med Peak E' Han: 7.5 cm/sec MV A max han: 105.2 cm/sec E/E' lat: 10.8 E/E' med: 11.0 MV E/A: 0.79 MV V2 max: 133.7 cm/sec MV P1/2t max han: 87.6 cm/sec Ao V2 max: 288.0 cm/sec MV max P.2 mmHg MV P1/2t: 59.3 msec Ao max P.2 mmHg MV V2 mean: 69.0 cm/sec Ao V2 mean: 217.6 cm/sec MV mean P.2 mmHg MV dec slope: 432.7 cm/sec2 Ao mean P.4 mmHg MV V2 VTI: 24.4 cm MVA(P1/2t): 3.7 cm2 Ao V2 VTI: 61.3 cm AV (velocity ratio): 0.34 LV V1 max: 102.3 cm/sec PA V2 max: 108.6 cm/sec TR max han: 268.8 cm/sec LV V1 max P.2 mmHg TR max P.9 mmHg LV V1 mean P.4 mmHg LV V1 mean: 74.1 cm/sec LV V1 VTI: 20.7 cm ECHO/Echo Complete Interpretation Summary Normal LV size. Left ventricular systolic function is normal. The left ventricular ejection fraction is 60 %. Stage 1 diastolic dysfunction. Pulmonary artery systolic pressure is 34 mmHg. Ordering Physician: Marisela^Tamir^^^ Referring Physician: Tamir Antonio Performed By: Paulette Jay, RDCS, RVT
== END | disposition home or self-care (01) ==
PROVIDERS: PCP Family Medicine; Referring Provider Family Medicine; Visit Provider Family Medicine
DX: R01.1 Cardiac murmur, unspecified (principal)
CPT/HCPCS: 93306

== ENCOUNTER → 2025-04-02 | Outpatient (CLI) | payer MEDICARE, SELFPAY ==
[2025-04-02 12:32] LABS: AST(SGOT) 20 U/L (<=31); Alanine Aminotransfer ALT/SGPT 14 U/L (<=34); Albumin, Serum 4.2 g/dL (3.4-4.8); Alkaline Phosphatase 65 U/L (35-104); Anion Gap 11 (5-15); BUN 11 mg/dL (4-19); BUN/Creat Ratio 17.6 RATIO (10-20); Calcium,Total 9.8 mg/dL (7.6-11.0); Carbon Dioxide 27.8 mmol/L (21.0-32.0); Chloride 98 mmol/L (98-108); Cholesterol 205 mg/dL (<=200); Globulin 2.8 g/dL (2.2-4.2); Glucose 82 mg/dL (70-99); Low Density Lipoprotein Calc. 79 mg/dL; Potassium 4.0 mmol/L (3.3-5.1); Triglycerides 106 mg/dL; Very Low Density Lipoprotein 21 mg/dL (5-40); cholesterol:hdl ratio screen 1.95
== END | disposition home or self-care (01) ==
LOC: MTLAB 09:18
PROVIDERS: PCP Family Medicine; Referring Provider Family Medicine; Visit Provider Family Medicine
DX: E78.00 Pure hypercholesterolemia, unspecified (principal)
CPT/HCPCS: 36415; 80053; 80061